=== PATIENT | female | born 1935 | race Caucasian/White ===

== ENCOUNTER → 2017-02-10 | Day surgery (SDC) | payer BC ==
[2017-01-23 08:24] VITALS: Ht 157.5 cm; Wt 59.1 kg
[~2017-02-10] VITALS: Ht 157.5 cm; Wt 59.1 kg
[~2017-02-10] MED LIST: 500ML BSS 0.3ML EPI 1:1000PF IRRIG ONE; ACETAMINOPHEN 325 MG TAB PO PRN; AMVISC PLUS 0.8ML SYRINGE INT OCU ONE; ATROPINE SULFATE 0.1 MG/ML 5ML SYR IV PRN; BROM0.07 OPL; BSS FLUSH ONE; CALC500C70 PO; CHOL20009 PO; EpHEDrine SULFATE INJ 50 MG/ML AMP IV PRN; EpINEphrine INJ 1MG/ML AMP 1 MG/ML AMP ONE; FENTANYL CITRATE INJ 50 MCG/1 ML 2 ML VIAL IV PRN; FLUMAZENIL 0.1 MG/1 ML 10 ML VIAL IV PRN; HYDROmorphone INJ 2 MG/ML SYR/VIAL IV PRN; LABETALOL HCL IV 5 MG/ML 20ML IV PRN; LACTATED RINGER'S 1000ML 500 ML IV SCH; LEVO100T7 PO; LIDOCAINE 3.5% OPH GEL PER APPLICATION CHARGE ONE; LIDOCAINE HCL 1% MPF 2 ML VIAL ONE; MEPERIDINE HCL 25 MG/ML CARP IV PRN; MIDAZOLAM HCL 1 MG/ML 2ML VIAL ONE; NALOXONE HCL 0.4 MG/1 ML VIAL/CARP IV PRN; OCUCOAT 1 ML SOLN IO ONE; ONDANSETRON INJ 2 MG/ML 2 ML VIAL IV PRN; PHENYLEPHRINE 100MCG/ML 5ML SYR IV PRN; PHENYLEPHRINE HCL 10% OP SOLN PER DROP CHARGE OPL SCH; POVIDONE-IODINE OP SOLN 30 ML BTL ONE; PRAV10TA39 PO; PRED1SUS OPL; PROPARACAINE 0.5% OP SOLN PER DROP CHARGE OPL SCH; TOBRAMYCIN/DEXAMETHASONE OPH OINT PER APPLN CHARGE ONE
[2017-02-10] MEDS: PHENYLEPHRINE HCL 2.5% OP SOLN PER DROP CHARGE OPL SCH ×2 (08:21→08:26)
[2017-02-10] MEDS: TROPICAMIDE 1% OP SOLN PER DROP CHARGE OPL SCH ×2 (08:22→08:27)
[2017-02-10] MEDS: CYCLOPENTOLATE HCL 1% OP SOLN PER DROP CHARGE OPL SCH ×2 (08:23→08:28)
[2017-02-10] MEDS: KETOROLAC 0.5% OP SOLN PER DROP CHARGE OPL SCH ×2 (08:24→08:29)
[2017-02-10] MEDS: GATIFLOXACIN OP SOLN PER DROP CHARGE OPL SCH ×2 (08:25→08:35)
--- NOTE | 2017-02-10 08:51 | History & Physical Bridge - [place] ---
H&P Re-Evaluation Bridge Note: I have examined the patient, reviewed the History & Physical and in the interval since the performance of the History & Physical I have noted the following changes of clinical significance: Diagnosis: Left Cataract Procedure: Left Cataract Removal with Lens Implant No changes noted
--- NOTE | 2017-02-10 09:40 | Discharge Instructions-SurgCtr ---
Discharge Instructions Date of Service Feb 10, 2017. Visit Reason for Visit: Cataract Left Eye Discharge Discharge Diagnosis / Problem: cataract Discharge Goals Goal(s): Improve function Activity Recommendations Activity Limitations: per Instructions/Follow-up section Anesthesia . Post Anesthesia Instructions: If you have had General Anesthesia or IV Sedation: * Do not drive today. * Resume driving when surgeon permits. * Do not make important decisions or sign legal documents today. * Call surgeon for: 1. Temperature elevations greater than 101 degrees F. 2. Uncontrollable pain. 3. Excessive bleeding. 4. Persistent nausea and vomiting. 5. Medication intolerance (nausea, vomiting or rash). * For nausea and vomiting use only clear liquids such as: tea, soda, bouillon until nausea subsides, then gradually increase diet as tolerated. * If you have any concerns or questions, call your surgeon's office. If physician is unavailable and it is an emergency, call 911 or go to the nearest emergency room. . Instructions / Follow-Up Instructions / Follow-Up ACTIVITY RECOMMENDATIONS: * No strenuous lifting, jogging or running for 4 days * No swimming or yard work for 1 week. * Limited bending is permitted, such as putting on shoes. RETURN TO SCHOOL/WORK: No work until seen by physician in office. MEDICATIONS: Resume previous medications unless instructed otherwise by your surgeon. This includes eye drops for glaucoma. Zymaxid/Gatifloxacin (solis cap) - one drop every 2 hours until bedtime Nevanac/Ilevro/Prolensa/Ketorolac (jewell cap) - one drop every 4 hours until bedtime Prednisolone (white/pink cap, SHAKE WELL) - one drop every 2 hours until bedtime Starting tomorrow - all 3 drops every 4 hours until seen in the office Optive drops - as needed for discomfort SPECIAL CARE INSTRUCTIONS: * Wear eyeshield when sleeping, for four nights. * You may wear your own glasses or sunglasses while awake. * You may read or watch TV * You may shower and wash your face, but be gentle around the eye and pat dry. * Blurry vision and mild irritation are normal. * Call office if pain is more severe or vision becomes dark at . FOLLOW UP VISIT: Follow-up with Dr Branch tomorrow. Diet Recommendations Home Diet: resume previous diet Procedures Procedures Performed: Left Cataract Phacoemulsification With Intraocular Lens Implant Pending Studies Studies pending at discharge: no Medical Emergencies . Who to Call and When: Medical Emergencies: If at any time you feel your situation is an emergency, please call 911 immediately. . Non-Emergent Contact Non-Emergency issues call your: [employer]pler . . "Provider Documentation" section prepared by Oliver Branch.
[2017-02-10 09:42] VITALS: TEMP 36.6
--- NOTE | 2017-02-10 09:43 | [facility] Operative Report ---
Operative Report Date of Service Feb 10, 2017. Operative Report 1. PREOPERATIVE DIAGNOSIS: Cataract of the left eye with a small pupil 2. POSTOPERATIVE DIAGNOSIS: Same. 3. PROCEDURE: Phacoemulsification with intraocular lens implantation of the left eye with pupil stretching SURGEON: Dr. Oliver Branch. ANESTHESIA: Topical Lidocaine gel, 1% Non- Preserved intracameral Lidocaine, and monitored intravenous sedation. INDICATIONS FOR THE PROCEDURE: The patient is a 81 - year-old female with a history of cataract of the left eye causing significant visual impairment. The details of the proposed procedure were explained to the patient who asked appropriate questions and following discussion of all risks, benefits and alternatives agreed to have the procedure done. The patient was noted to have a poorly dilating pupil preoperatively and therefore plans were made to use pupil stretching. 4. OPERATION AND FINDINGS: DESCRIPTION OF PROCEDURE: After informed consent was obtained, the patient was brought to the Operating Room at the [facility]. The patient was placed in a supine position and then the left eye was prepped and draped in the usual sterile fashion for intraocular surgery. A drop of topical Lidocaine gel was placed in the operative eye. A wire lid speculum was then placed in the fornices. A corneal paracentesis was then created temporally. The Non-Preserved Lidocaine was then instilled into the anterior chamber. The anterior chamber was then pressurized with viscoelastic. A 2.0 mm clear corneal incision was then created temporally. Kuglen hooks were used to stretch the pupil in both a vertical and horizontal direction. A cystotome was inserted into the anterior chamber and used to create a tear in the anterior lens capsule. This capsular tear was then used to create a small flap and the flap was dragged in a counterclockwise direction in order to create a continuous curvilinear capsulorrhexis. Hydrodissection was accomplished with balanced salt solution. Phacoemulsification of the lens nucleus was then performed in a standard [id number] technique. The phaco time was 18 seconds with an average power of 12 %. The remaining cortical material was removed using irrigation aspiration. The capsular bag was then filled with viscoelastic. A Bausch & Lomb MI60L +22.0 diopters lens was then loaded into the injector and injected into the capsular bag. The remaining viscoelastic was removed with the irrigation aspiration handpiece. The wound was hydrated and then checked and found to be watertight. The intraocular pressure was checked and found to be adequate. The wire lid speculum was removed and the patient's face was cleaned and dried. TobraDex ointment was placed in the inferior fornix. The patient was discharged to the Recovery Room having tolerated the procedure well. There were no complications. The patient will be seen tomorrow in the office for follow-up. I attest to the content of the Intraoperative Record and any orders documented therein. Any exceptions are noted below.
[2017-02-10 10:00] VITALS: BP 170/92; PULSE 76; O2SAT 96
--- NOTE | 2017-02-10 10:08 | Anesthesia Progress Nt - [facility] ---
Anesthesia Post Op Note Date & Time Feb 10, 2017 at 10:09 Vital Signs Pain Intensity: 0 Vital Signs Past 12 Hours Date Time Temp Pulse Resp B/P Pulse Ox O2 Delivery O2 Flow Rate FiO2 02/10/17 10:00 76 16 170/92 96 Room Air 02/10/17 09:42 36.6 63 12 160/98 97 Room Air 02/10/17 08:16 36.5 71 16 142/86 94 Room Air Notes Mental Status: alert / awake / arousable, participated in evaluation Pt Amnestic to Procedure: Yes Nausea / Vomiting: adequately controlled Pain: adequately controlled Airway Patency, RR, SpO2: stable & adequate BP & HR: stable & adequate Hydration State: stable & adequate Anesthetic Complications: no major complications apparent
== END | disposition home or self-care (01) ==
LOC: X.SURG 07:55
PROVIDERS: ATTEND Ophthalmology
DX: H26.9 Unspecified cataract (principal)

== ENCOUNTER → 2017-03-03 | Day surgery (SDC) | payer BC ==
[2017-02-20 10:34] VITALS: Ht 157.5 cm; Wt 59.1 kg
[~2017-03-03] VITALS: Ht 157.5 cm; Wt 59.1 kg
[~2017-03-03] MED LIST changes: -FENTANYL CITRATE INJ 50 MCG/1 ML 2 ML VIAL IV PRN; -FLUMAZENIL 0.1 MG/1 ML 10 ML VIAL IV PRN; -HYDROmorphone INJ 2 MG/ML SYR/VIAL IV PRN; -LABETALOL HCL IV 5 MG/ML 20ML IV PRN; -MEPERIDINE HCL 25 MG/ML CARP IV PRN; -NALOXONE HCL 0.4 MG/1 ML VIAL/CARP IV PRN; -ONDANSETRON INJ 2 MG/ML 2 ML VIAL IV PRN; -PHENYLEPHRINE 100MCG/ML 5ML SYR IV PRN; -PHENYLEPHRINE HCL 10% OP SOLN PER DROP CHARGE OPL SCH; +PHENYLEPHRINE HCL 10% OP SOLN PER DROP CHARGE OPR SCH; -PROPARACAINE 0.5% OP SOLN PER DROP CHARGE OPL SCH; +PROPARACAINE 0.5% OP SOLN PER DROP CHARGE OPR SCH
[2017-03-03] MEDS: PHENYLEPHRINE HCL 2.5% OP SOLN PER DROP CHARGE OPR SCH ×2 (09:58→10:03)
[2017-03-03] MEDS: TROPICAMIDE 1% OP SOLN PER DROP CHARGE OPR SCH ×2 (09:59→10:04)
[2017-03-03] MEDS: CYCLOPENTOLATE HCL 1% OP SOLN PER DROP CHARGE OPR SCH ×2 (10:00→10:05)
[2017-03-03] MEDS: KETOROLAC 0.5% OP SOLN PER DROP CHARGE OPR SCH ×2 (10:01→10:06)
[2017-03-03] MEDS: GATIFLOXACIN OP SOLN PER DROP CHARGE OPR SCH ×2 (10:02→10:09)
--- NOTE | 2017-03-03 10:47 | History & Physical Bridge - [place] ---
H&P Re-Evaluation Bridge Note: I have examined the patient, reviewed the History & Physical and in the interval since the performance of the History & Physical I have noted the following changes of clinical significance: No changes noted
--- NOTE | 2017-03-03 11:31 | Discharge Instructions-SurgCtr ---
Discharge Instructions Date of Service Mar 03, 2017. Visit Reason for Visit: Cataract Right Eye Discharge Discharge Diagnosis / Problem: cataract Discharge Goals Goal(s): Improve function Activity Recommendations Activity Limitations: per Instructions/Follow-up section Anesthesia . Post Anesthesia Instructions: If you have had General Anesthesia or IV Sedation: * Do not drive today. * Resume driving when surgeon permits. * Do not make important decisions or sign legal documents today. * Call surgeon for: 1. Temperature elevations greater than 101 degrees F. 2. Uncontrollable pain. 3. Excessive bleeding. 4. Persistent nausea and vomiting. 5. Medication intolerance (nausea, vomiting or rash). * For nausea and vomiting use only clear liquids such as: tea, soda, bouillon until nausea subsides, then gradually increase diet as tolerated. * If you have any concerns or questions, call your surgeon's office. If physician is unavailable and it is an emergency, call 911 or go to the nearest emergency room. . Instructions / Follow-Up Instructions / Follow-Up ACTIVITY RECOMMENDATIONS: * No strenuous lifting, jogging or running for 4 days * No swimming or yard work for 1 week. * Limited bending is permitted, such as putting on shoes. RETURN TO SCHOOL/WORK: No work until seen by physician in office. MEDICATIONS: Resume previous medications unless instructed otherwise by your surgeon. This includes eye drops for glaucoma. Zymaxid/Gatifloxacin (solis cap) - one drop every 2 hours until bedtime Nevanac/Ilevro/Prolensa/Ketorolac (jewell cap) - one drop every 4 hours until bedtime Prednisolone (white/pink cap, SHAKE WELL) - one drop every 2 hours until bedtime Starting tomorrow - all 3 drops every 4 hours until seen in the office Optive drops - as needed for discomfort SPECIAL CARE INSTRUCTIONS: * Wear eyeshield when sleeping, for four nights. * You may wear your own glasses or sunglasses while awake. * You may read or watch TV * You may shower and wash your face, but be gentle around the eye and pat dry. * Blurry vision and mild irritation are normal. * Call office if pain is more severe or vision becomes dark at . FOLLOW UP VISIT: Follow-up with Dr Branch tomorrow. Diet Recommendations Home Diet: resume previous diet Procedures Procedures Performed: Right Cataract Phacoemulsification With Intraocular Lens Implant Pending Studies Studies pending at discharge: no Medical Emergencies . Who to Call and When: Medical Emergencies: If at any time you feel your situation is an emergency, please call 911 immediately. . Non-Emergent Contact Non-Emergency issues call your: Ocean [employer]ishing Guide . . "Provider Documentation" section prepared by Oliver Branch.
--- NOTE | 2017-03-03 11:33 | [facility] Operative Report ---
Operative Report Date of Service Mar 03, 2017. Operative Report 1. PREOPERATIVE DIAGNOSIS: Cataract of the right eye with small pupil. 2. POSTOPERATIVE DIAGNOSIS: Same. 3. PROCEDURE: Phacoemulsification with intraocular lens implantation of the right eye. SURGEON: Dr. Oliver Branch. ANESTHESIA: Topical Lidocaine gel, 1% Non- Preserved intracameral Lidocaine, and monitored intravenous sedation. INDICATIONS FOR THE PROCEDURE: The patient is a 81 - year-old female with a history of cataract of the right eye causing significant visual impairment. The details of the proposed procedure were explained to the patient who asked appropriate questions and following discussion of all risks, benefits and alternatives agreed to have the procedure done. The patient was noted preoperatively to have a poorly dilating pupil and therefore plans were made for pupil stretching. 4. OPERATION AND FINDINGS: DESCRIPTION OF PROCEDURE: After informed consent was obtained, the patient was brought to the Operating Room at the [facility]. The patient was placed in a supine position and then the right eye was prepped and draped in the usual sterile fashion for intraocular surgery. A drop of topical Lidocaine gel was placed in the operative eye. A wire lid speculum was then placed in the fornices. A corneal paracentesis was then created temporally. The Non-Preserved Lidocaine was then instilled into the anterior chamber. The anterior chamber was then pressurized with viscoelastic. A 2.0 mm clear corneal incision was then created temporally. Kuglen hooks were used to stretch the pupil in both a horizontal and vertical direction to create adequate visualization of the anterior lens capsule. A cystotome was inserted into the anterior chamber and used to create a tear in the anterior lens capsule. This capsular tear was then used to create a small flap and the flap was dragged in a counterclockwise direction in order to create a continuous curvilinear capsulorrhexis. Hydrodissection was accomplished with balanced salt solution. Phacoemulsification of the lens nucleus was then performed in a standard [id number] technique. The phaco time was 23 seconds with an average power of 14 %. The remaining cortical material was removed using irrigation aspiration. The capsular bag was then filled with viscoelastic. A Bausch & Lomb MI60L +21.0 diopters lens was then loaded into the injector and injected into the capsular bag. The remaining viscoelastic was removed with the irrigation aspiration handpiece. The wound was hydrated and then checked and found to be watertight. The intraocular pressure was checked and found to be adequate. The wire lid speculum was removed and the patient's face was cleaned and dried. TobraDex ointment was placed in the inferior fornix. The patient was discharged to the Recovery Room having tolerated the procedure well. There were no complications. The patient will be seen tomorrow in the office for follow-up. I attest to the content of the Intraoperative Record and any orders documented therein. Any exceptions are noted below.
[2017-03-03 11:37] VITALS: TEMP 36.4
[2017-03-03 11:51] VITALS: BP 165/87; PULSE 64; O2SAT 97
--- NOTE | 2017-03-03 11:56 | Anesthesia Progress Nt - [facility] ---
Anesthesia Post Op Note Date & Time Mar 03, 2017 at 11:56 Vital Signs Pain Intensity: 0 Vital Signs Past 12 Hours Date Time Temp Pulse Resp B/P Pulse Ox O2 Delivery O2 Flow Rate FiO2 03/03/17 11:51 64 16 165/87 97 Room Air 03/03/17 11:37 36.4 58 16 162/87 99 Room Air 03/03/17 09:55 36.4 64 16 187/93 95 Room Air Notes Mental Status: alert / awake / arousable, participated in evaluation Pt Amnestic to Procedure: Yes Nausea / Vomiting: adequately controlled Pain: adequately controlled Airway Patency, RR, SpO2: stable & adequate BP & HR: stable & adequate Hydration State: stable & adequate Anesthetic Complications: no major complications apparent
== END | disposition home or self-care (01) ==
LOC: X.SURG 09:24
PROVIDERS: ATTEND Ophthalmology
DX: H26.9 Unspecified cataract (principal)

== ENCOUNTER → 2018-02-16 | Outpatient (CLI) | payer OTHER, BC ==
[~2018-02-16] MED LIST changes: -500ML BSS 0.3ML EPI 1:1000PF IRRIG ONE; -ACETAMINOPHEN 325 MG TAB PO PRN; -AMVISC PLUS 0.8ML SYRINGE INT OCU ONE; -ATROPINE SULFATE 0.1 MG/ML 5ML SYR IV PRN; -BSS FLUSH ONE; -EpHEDrine SULFATE INJ 50 MG/ML AMP IV PRN; -EpINEphrine INJ 1MG/ML AMP 1 MG/ML AMP ONE; -LACTATED RINGER'S 1000ML 500 ML IV SCH; -LIDOCAINE 3.5% OPH GEL PER APPLICATION CHARGE ONE; -LIDOCAINE HCL 1% MPF 2 ML VIAL ONE; -MIDAZOLAM HCL 1 MG/ML 2ML VIAL ONE; -OCUCOAT 1 ML SOLN IO ONE; -PHENYLEPHRINE HCL 10% OP SOLN PER DROP CHARGE OPR SCH; -POVIDONE-IODINE OP SOLN 30 ML BTL ONE; -PROPARACAINE 0.5% OP SOLN PER DROP CHARGE OPR SCH; -TOBRAMYCIN/DEXAMETHASONE OPH OINT PER APPLN CHARGE ONE
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
== END | disposition home or self-care (01) ==
LOC: C.RAD1850 11:47
PROVIDERS: ATTEND Physician Assistant
DX: R07.81 Pleurodynia (principal); K59.00 Constipation, unspecified

== ENCOUNTER → 2018-03-24 | Outpatient (CLI) | payer BC ==
[2018-03-24 10:06] LABS: ALBUMIN 3.5 gm/dl (3.4-5.0); ALT/SGPT 25 U/L (12-78); AST/SGOT 20 U/L (15-37); BLOOD UREA NITROGEN 26 mg/dl (7-18); CALCIUM 9.4 mg/dl (8.5-10.1); CARBON DIOXIDE 29 mmol/L (21-32); CHOLESTEROL 221 mg/dl (0-200); CREATININE 0.72 mg/dl (0.60-1.20); GLUCOSE 79 mg/dl (70-99); POTASSIUM 4.3 mmol/L (3.5-5.1); SODIUM 141 mmol/L (136-145)
[2018-03-24 10:16] LABS: ALKALINE PHOSPHATASE 81 U/L (45-117); LDL CHOLESTEROL CALCULATED 135 mg/dl; TOTAL PROTEIN 7.2 gm/dl (6.4-8.2)
== END | disposition home or self-care (01) ==
LOC: C.LAB1850 08:32
PROVIDERS: ATTEND Internal Medicine
DX: I10 Essential (primary) hypertension (principal); E03.9 Hypothyroidism, unspecified; E78.5 Hyperlipidemia, unspecified; E55.9 Vitamin D deficiency, unspecified

== ENCOUNTER 2023-06-29 13:06 | Inpatient (IN) ==
[2023-06-29 14:38] LABS: Alanine Aminotransferase 15 U/L (7-52); Albumin Level 3.7 gm/dl (3.4-5.0); Alkaline Phosphatase 75 U/L (34-104); Anion Gap 9 (3-11); Aspartate Aminotransferase 26 U/L (13-39); BUN Creatinine Ratio 31.9 (10-20); Basophils # (auto) 0.03 K/uL (0-0.2); Basophils % (auto) 0.2 %; Bilirubin,Total 1.4 mg/dl (0.2-1.0); Blood Urea Nitrogen 23 mg/dl (6-23); Calcium 9.8 mg/dl (8.6-10.3); Carbon Dioxide 28 mmol/L (21-32); Chloride 94 mmol/L (98-107); Eosinophils # (auto) 0.02 K/uL (0-0.50); Eosinophils % (auto) 0.1 %; Est GFR (African American) 86.1 ml/min; Est GFR (Non-African American) 74.3 ml/min; Globulin 3.8 gm/dl (2.5-4.0); Glucose 164 mg/dl (70-99(Fasting)); Hematocrit (blood only) 42.3 % (37.0-47.0); Hemoglobin 14.1 g/dl (12.0-16.0); Immature Granulocytes # (auto) 0.04 K/uL (0.01-0.20); Immature Granulocytes % (auto) 0.3 %; Lymphocytes # (auto) 1.24 K/uL (1.2-3.4); Lymphocytes % (auto) 8.9 %; Mean Corpuscular Hemoglobin 29.6 pg (25.0-34.0); Mean Corpuscular Hgb Conc 33.3 g/dL (32.0-36.0); Mean Corpuscular Volume 88.7 fL (80.0-100.0); Mean Platelet Volume 10.6 fL (9.4-12.4); Monocytes # (auto) 1.18 K/uL (0.11-0.59); Monocytes % (auto) 8.5 %; Neutrophils # (auto) 11.42 K/uL (1.40-6.50); Platelet Count 486 K/uL (130-400); Potassium 3.8 mmol/L (3.5-5.1); RDW Coefficient of Variation 13.7 % (11.5-14.5); RDW Standard Deviation 44.5 fL (36.4-46.3); Red Blood Count 4.77 M/uL (4.20-5.40); Sodium 131 mmol/L (136-145); Total Protein 7.5 gm/dl (6.0-8.3); White Blood Count 13.93 K/ul (4.8-10.8)
[2023-06-29] MEDS ORDERED: CEFEPIME 2,000 MG/20 ML VIAL IV STA (16:24)
[2023-06-29] MEDS ORDERED: ONDANSETRON INJ 2 MG/ML 2 ML VIAL IV STA (16:24)
[2023-06-29] MEDS ORDERED: SODIUM CHLORIDE 0.9% 1000ML 1,000 ML IV ONE (16:24)
--- NOTE | 2023-06-29 16:30 | Emergency Department Note ---
Impression & Plan Weakness, Leukocytosis, Acute hyponatremia, Ambulatory dysfunction ED Provider Note NAME: ROXY DANIELSON AGE: 88 SEX: F : 1935 ARRIVES VIA: Walk-In INFORMANT: [Patient][family] ED PROVIDER(S): [Ashu Goldstein MD] CHIEF COMPLAINT: Weakness HISTORY OF PRESENT ILLNESS: The patient is an 88-year-old female who as per the son has had some increasing difficulty getting around and performing her daily activities for the last few months. In the last few days, she has worsened to the point where she can no longer even stand on her own. The patient went to her doctor's office today and was felt to be dehydrated. She was referred to the ER. The patient admits to some chills at the doctor's office. She denies fever or cough or shortness of breath. No chest or abdominal pain. The patient states that she did vomit once, she thinks yesterday. As per the son, he feels the patient is dehydrated. He is also concerned for the possibility of UTI as she has been urinating quite frequently. PMHx/PSHx: See Below SOCIAL HISTORY: See Below. PHYSICAL EXAM: GENERAL: Patient is in no acute distress. HEENT: No acute trauma, normocephalic atraumatic, mucous membranes moist, no nasal congestion. NECK: No stridor, no adenopathy, no meningismus, trachea is midline. LUNGS: A few crackles heard at the left lung anteriorly. Posterior lung sounds are clear without wheezing or crackles. No respiratory distress HEART: Mildly tachycardic and irregular, no obvious murmur. ABDOMEN: Soft, nontender, bowel sounds positive, no peritonitis. EXTREMITIES: No cyanosis. Bilateral pedal edema, worse on the left which is her baseline history. NEUROLOGIC: Awake and alert, no speech slur. Poor historian. Moves all extremities. SKIN: No rash, no jaundice, no diaphoresis. DIFFERENTIAL DIAGNOSIS: Dehydration, renal or liver failure, electrolyte imbalance, diverticulitis or colitis, pneumonia, UTI, bacteremia or sepsis, stroke, among others. EMERGENCY DEPARTMENT COURSE/PROCEDURES: Prior/Outside records reviewed: Recent outpatient family practice note. ECG per my interpretation: Indication was weakness. The ECG shows a sinus tachycardia with PACs. LVH is present. The rate is 105. There is significant baseline artifact. There is no ST elevation, no PVCs. The QTc is 415. Continuous Cardiac Monitoring per my interpretation: An order was placed for continuous cardiac monitoring. The monitor shows a rate of 98 with normal sinus rhythm. MEDICAL DECISION MAKING: There is a slight leukocytosis, this could be consistent with infection or just the stress of her current presentation. There is a normal hemoglobin. Platelet count is slightly elevated. Sodium was low at 131, no renal failure. Lactic acid level was not elevated making sepsis less likely. Bilirubin was slightly high at 1.4, no other elevated LFTs noted. ECG showed a sinus tachycardia, no obvious acute ischemia. Cardiac enzyme testing was slightly elevated. This subtle troponin elevation could be secondary to cardiac injury or potentially just mismatch. Procalcitonin level was not elevated making serious bacterial infection less likely. TSH was slightly high however, the T4 was normal. Urinalysis did not show findings of infection. Chest x-ray per my review did not show mediastinal widening, pneumonia or pneumothorax. Abdominal and pelvis CT showed a distended gallbladder, no urinary or bowel obstruction, no acute surgical process by CT imaging. Head CT showed no acute bleed or mass effect. Gallbladder ultrasound did not show any evidence for acute cholecystitis. On exam, the patient appeared weak and dehydrated. The patient received IV saline for hydration, 1 L. She was given IV Toradol pain--she complained of hip pain during her stay, she received IV Zofran for nausea. She was given IV cefepime as empiric antibiotic coverage. The cause for her complaints is not completely clear but likely multifactorial- she certainly does seem dehydrated and debilitated. Her sodium is low. She does require a hospital stay, further testing, observation and hydration. I did speak with the patient and case management, I spoke with her son, the on-call hospitalist was consulted. DISPOSITION: Patient's findings and presentation warrant a hospital stay. Past Med/Surg History Medical History Dyslipidemia Hypercholesterolemia Osteoarthritis Sciatica Uterine leiomyoma Surgical History Hx of shoulder replacement S/P hip replacement S/P tonsillectomy and adenoidectomy Status post total shoulder arthroplasty Family History Father COPD (chronic obstructive pulmonary disease) Mother Hypertension Daughter Breast cancer Grandmother (Maternal) Colon cancer Denies family history of Ovarian cancer Prostate cancer Myocardial infarction Social History Smoking Status: Never smoker Second Hand Exposure: No; Do You Dip or Chew Tobacco: No; Hx Alcohol Use: No Hx Substance Use: No Preferred Language: Portuguese Communication Ability: Effective Visual Impairment: No Limitations Hearing Ability: Normal Prestidigitator Required: No Beliefs That Will Affect Care: None marital status: Current Living Situation: Alone Current Living Situation Comment: Pt's son comes and helps with pt's care current occupational status: retired Other Information That Helps Us Care for You: No Feels Safe at Home: Yes Safety Concerns: Feels Safe At This Time Dental Care, Regularly: Yes Physical Activity Frequency: Other Physical Activity Frequency Comment: 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 Seatbelt Use: always Sunscreen Use: No Assistive Devices: Glasses and Walker Allergies Allergies Allergy/AdvReac Type Severity Reaction Status Date / Time morphine AdvReac Intermediate nausea Verified 06/29/23 16:28 vomiting Home Meds Home Medications Medication Instructions Recorded Confirmed cholecalciferol (vitamin D3) 50 50 mcg PO DAILY 09/28/19 06/29/23 mcg (2,000 unit) capsule antiarthritic combination no.2 900 900 mg PO DAILY 07/08/22 06/29/23 mg tablet (glucosamine-chondroitin) calcium carbonate 600 mg-vitamin 1 tab PO DAILY 06/29/23 06/29/23 D3 10 mcg (400 unit) tablet (Calcium 600 + D(3)) levothyroxine 100 mcg tablet 100 mcg PO DAILYBB 06/29/23 06/29/23 (Synthroid) Previous Rx's Medication Instructions Recorded pravastatin 20 mg tablet 20 mg PO HS #90 tabs 10/23/22 Results & Data (ED) Vital Signs Vital Signs - 24 hr 06/29/23 13:10 06/29/23 16:27 06/29/23 16:12 Temperature 37.2 C Temperature Source Temporal Artery Scan Pulse Rate 59 L 92 H 96 H Pulse Rate from SpO2 Sensor Pulse Rhythm Regular Pulse Strength Normal Respiratory Rate 20 18 Respiratory Effort / Characteristics Non-Labored Spontaneous Respiratory Depth Normal Respiratory Pattern Regular Blood Pressure 134/75 Blood Pressure Mean 94 Blood Pressure Position Sitting Pulse Oximetry 99 Oxygen Delivery Method Room Air Sepsis Recent Fever Within 48 Hours No Sepsis New/Unexplained Change in Mental Status No Sepsis Action Taken by Nursing No Action Required 06/29/23 16:20 06/29/23 16:30 06/29/23 16:30 Temperature Temperature Source Pulse Rate 97 H 90 Pulse Rate from SpO2 Sensor 95 H 83 Pulse Rhythm Pulse Strength Respiratory Rate 18 20 Respiratory Effort / Characteristics Respiratory Depth Respiratory Pattern Blood Pressure 142/86 H Blood Pressure Mean 104 Blood Pressure Position Pulse Oximetry 90 97 Oxygen Delivery Method Sepsis Recent Fever Within 48 Hours Sepsis New/Unexplained Change in Mental Status Sepsis Action Taken by Nursing 06/29/23 16:40 06/29/23 17:56 06/29/23 17:58 Temperature Temperature Source Pulse Rate 92 H 95 H Pulse Rate from SpO2 Sensor 85 Pulse Rhythm Pulse Strength Respiratory Rate 14 33 H Respiratory Effort / Characteristics Respiratory Depth Respiratory Pattern Blood Pressure 158/112 H Blood Pressure Mean 127 Blood Pressure Position Pulse Oximetry 96 Oxygen Delivery Method Sepsis Recent Fever Within 48 Hours Sepsis New/Unexplained Change in Mental Status Sepsis Action Taken by Nursing 06/29/23 17:58 06/29/23 18:00 06/29/23 18:00 Temperature Temperature Source Pulse Rate 86 88 Pulse Rate from SpO2 Sensor 87 85 Pulse Rhythm Pulse Strength Respiratory Rate 20 22 Respiratory Effort / Characteristics Respiratory Depth Respiratory Pattern Blood Pressure 155/76 H Blood Pressure Mean 102 Blood Pressure Position Pulse Oximetry 92 95 Oxygen Delivery Method Sepsis Recent Fever Within 48 Hours Sepsis New/Unexplained Change in Mental Status Sepsis Action Taken by Nursing 06/29/23 18:10 06/29/23 18:20 06/29/23 18:30 Temperature Temperature Source Pulse Rate 91 H 89 Pulse Rate from SpO2 Sensor 92 H 91 H Pulse Rhythm Pulse Strength Respiratory Rate 22 15 Respiratory Effort / Characteristics Respiratory Depth Respiratory Pattern Blood Pressure 141/75 H Blood Pressure Mean 97 Blood Pressure Position Pulse Oximetry 92 95 Oxygen Delivery Method Sepsis Recent Fever Within 48 Hours Sepsis New/Unexplained Change in Mental Status Sepsis Action Taken by Nursing 06/29/23 18:30 Temperature Temperature Source Pulse Rate 88 Pulse Rate from SpO2 Sensor 87 Pulse Rhythm Pulse Strength Respiratory Rate 18 Respiratory Effort / Characteristics Respiratory Depth Respiratory Pattern Blood Pressure Blood Pressure Mean Blood Pressure Position Pulse Oximetry 96 Oxygen Delivery Method Sepsis Recent Fever Within 48 Hours Sepsis New/Unexplained Change in Mental Status Sepsis Action Taken by Snf Medications Current Medication List: was personally reviewed by me Laboratory Data Attestation: I reviewed the patient's lab results. 06/29/23 13:54 06/29/23 13:54 Lab Results 06/29/23 06/29/23 06/29/23 Range/Units 13:54 13:54 13:54 WBC 13.93 H (4.8-10.8) K/ul RBC 4.77 (4.20-5.40) M/uL Hgb 14.1 (12.0-16.0) g/dl Hct 42.3 (37.0-47.0) % MCV 88.7 (80.0-100.0) fL MCH 29.6 (25.0-34.0) pg MCHC 33.3 (32.0-36.0) g/dL RDW Std Deviation 44.5 (36.4-46.3) fL RDW Coeff of [place] 13.7 (11.5-14.5) % Plt Count 486 H (130-400) K/uL MPV 10.6 (9.4-12.4) fL Immature Gran % (Auto) 0.3 % Neut % (Auto) 82.0 % Lymph % (Auto) 8.9 % [place] % (Auto) 8.5 % Eos % (Auto) 0.1 % Baso % (Auto) 0.2 % Neut # (Auto) 11.42 H (1.40-6.50) K/uL Lymph # (Auto) 1.24 (1.2-3.4) K/uL [place] # (Auto) 1.18 H (0.11-0.59) K/uL Eos # (Auto) 0.02 (0-0.50) K/uL Baso # (Auto) 0.03 (0-0.2) K/uL Immature Gran # (Auto) 0.04 (0.01-0.20) K/uL Sodium 131 L (136-145) mmol/L Potassium 3.8 (3.5-5.1) mmol/L Chloride 94 L (98-107) mmol/L Carbon Dioxide 28 (21-32) mmol/L Anion Gap 9 (3-11) BUN 23 (6-23) mg/dl Creatinine 0.72 (0.6-1.2) mg/dl Est Cr Clr Drug Dosing Not Reportable Est GFR ( Amer) 86.1 ml/min Est GFR (Non-Af Amer) 74.3 ml/min BUN/Creatinine Ratio 31.9 H (10-20) Glucose 164 H (70-99(Fasting)) mg/dl Lactate (0.4-2.0) mmol/L Calcium 9.8 (8.6-10.3) mg/dl Magnesium 1.9 (1.7-2.4) mg/dl Total Bilirubin 1.4 H (0.2-1.0) mg/dl AST 26 (13-39) U/L ALT 15 (7-52) U/L Alkaline Phosphatase 75 (34-104) U/L Troponin I High Sens 19.8 H (0-14) pg/ml Total Protein 7.5 (6.0-8.3) gm/dl Albumin 3.7 (3.4-5.0) gm/dl Globulin 3.8 (2.5-4.0) gm/dl Albumin/Globulin Ratio 1.0 (0.9-2) Procalcitonin (0-0.5) ng/ml TSH 4.650 H (0.300-4.500) uIu/ml Free T4 1.09 (0.61-1.60) ng/dl Urine Color Urine Appearance (Clear) Urine pH (4.5-7.5) Ur Specific Iron (1.000-1.030) Urine Protein (Negative) Urine Glucose (UA) (Negative) Urine Ketones (Negative) Urine Blood (Negative) Urine Nitrite (Negative) Urine Bilirubin (Negative) Urine Urobilinogen (Negative) Ur Leukocyte Esterase (Negative) Urine WBC (Auto) (0-5) /hpf Urine RBC (Auto) (0-4) /hpf U Hyaline Cast (Auto) (0-5) /lpf U Epithel Cells (Auto) (0-5) /lpf Urine Bacteria (Auto) (Negative) 06/29/23 06/29/23 06/29/23 Range/Units 13:54 16:40 17:53 WBC (4.8-10.8) K/ul RBC (4.20-5.40) M/uL Hgb (12.0-16.0) g/dl Hct (37.0-47.0) % MCV (80.0-100.0) fL MCH (25.0-34.0) pg MCHC (32.0-36.0) g/dL RDW Std Deviation (36.4-46.3) fL RDW Coeff of [place] (11.5-14.5) % Plt Count (130-400) K/uL MPV (9.4-12.4) fL Immature Gran % (Auto) % Neut % (Auto) % Lymph % (Auto) % [place] % (Auto) % Eos % (Auto) % Baso % (Auto) % Neut # (Auto) (1.40-6.50) K/uL Lymph # (Auto) (1.2-3.4) K/uL [place] # (Auto) (0.11-0.59) K/uL Eos # (Auto) (0-0.50) K/uL Baso # (Auto) (0-0.2) K/uL Immature Gran # (Auto) (0.01-0.20) K/uL Sodium (136-145) mmol/L Potassium (3.5-5.1) mmol/L Chloride (98-107) mmol/L Carbon Dioxide (21-32) mmol/L Anion Gap (3-11) BUN (6-23) mg/dl Creatinine (0.6-1.2) mg/dl Est Cr Clr Drug Dosing Est GFR ( Amer) ml/min Est GFR (Non-Af Amer) ml/min BUN/Creatinine Ratio (10-20) Glucose (70-99(Fasting)) mg/dl Lactate 1.9 (0.4-2.0) mmol/L Calcium (8.6-10.3) mg/dl Magnesium (1.7-2.4) mg/dl Total Bilirubin (0.2-1.0) mg/dl AST (13-39) U/L ALT (7-52) U/L Alkaline Phosphatase (34-104) U/L Troponin I High Sens (0-14) pg/ml Total Protein (6.0-8.3) gm/dl Albumin (3.4-5.0) gm/dl Globulin (2.5-4.0) gm/dl Albumin/Globulin Ratio (0.9-2) Procalcitonin 0.32 (0-0.5) ng/ml TSH (0.300-4.500) uIu/ml Free T4 (0.61-1.60) ng/dl Urine Color Dark Yellow Urine Appearance Clear (Clear) Urine pH 5.5 (4.5-7.5) Ur Specific Iron > 1.045 H (1.000-1.030) Urine Protein 1+ H (Negative) Urine Glucose (UA) Negative (Negative) Urine Ketones 1+ H (Negative) Urine Blood 3+ H (Negative) Urine Nitrite Negative (Negative) Urine Bilirubin Negative (Negative) Urine Urobilinogen Negative (Negative) Ur Leukocyte Esterase Negative (Negative) Urine WBC (Auto) 1-5 (0-5) /hpf Urine RBC (Auto) 10-30 H (0-4) /hpf U Hyaline Cast (Auto) 1-5 (0-5) /lpf U Epithel Cells (Auto) 10-20 H (0-5) /lpf Urine Bacteria (Auto) Negative (Negative) Administered Medications Heparin Sodium (Porcine) (Heparin Sod 5,000 Unit/0.5 Ml Vial) 5,000 units SQ Q12 ARVIND Stop: 07/29/23 20:59 Last Admin: 06/29/23 21:11 Dose: 5,000 units Documented By: [facility] Potassium Chloride/Sodium Chloride (Normal Saline W/20 Meq Kcl) 20 meq in 1,000 mls @ 80 mls/hr IV .[id number] ARVIND; Protocol Stop: 07/29/23 20:17 Last Admin: 06/29/23 21:10 Dose: 80 mls/hr Documented By: [facility] [place] [place] Famotidine 20 mg/ Syringe 5 mls @ 2.5 mls/min IV Q12 ARVIND Stop: 07/29/23 20:59 Last Admin: 06/29/23 21:11 Dose: 2.5 mls/min Documented By: [facility] [place] [place] Pravastatin Sodium (Pravastatin Sod 20 Mg Tab) 20 mg PO HS ARVIND Stop: 07/29/23 20:59 Last Admin: 06/29/23 21:11 Dose: 20 mg Documented By: [facility] [place] [place] Discontinued Medications Sodium Chloride (Nss 1000ml) 1,000 mls @ 999 mls/hr IV .[id number] ONE Stop: 06/29/23 17:24 Last Infusion: 06/29/23 17:59 Dose: 0 mls/hr Documented By: Admin: 06/29/23 16:48 Dose: 999 mls/hr Documented By: KAYA Cefepime HCl (Maxipime) 2,000 mg in 20 mls @ 5 mls/min IV NOW STA; Protocol Stop: 06/29/23 16:27 Last Admin: 06/29/23 17:53 Dose: 5 mls/min Documented By: KAYA Piperacillin Sod/Tazobactam (Sod 4.5 gm/ Dextrose) 120 mls @ 240 mls/hr IV ONE ONE; Protocol Stop: 06/29/23 21:29 Last Infusion: 06/29/23 22:23 Dose: 0 mls/hr Documented By: Admin: 06/29/23 21:51 Dose: 240 mls/hr Documented By: BREEZY Ioversol (Optiray 320 100ml) 93 ml IV ONCE ONE Stop: 06/29/23 17:08 Last Admin: 06/29/23 17:08 Dose: 93 ml Documented By: JUAN Ketorolac Tromethamine (Ketorolac Tromethamine 15 Mg/Ml Vial) 10 mg IV NOW ONE Stop: 06/29/23 18:53 Last Admin: 06/29/23 19:11 Dose: 10 mg Documented By: KAYA Ondansetron HCl (Ondansetron Inj 2 Mg/Ml 2 Ml Vial) 4 mg IV NOW STA Stop: 06/29/23 16:25 Last Admin: 06/29/23 17:53 Dose: 4 mg Documented By: KAYA Imaging Data Radiologist's Impression: Abdomen/Pelvis CT 06/29/23 16:[address] WITH IV CONTRAST HISTORY: Acute nausea with vomiting nv, chills TECHNIQUE: Multiaxial CT images of the abdomen and pelvis were performed following the IV administration of 93 cc of Optiray, A dose lowering technique was utilized adhering to the principles of ALARA. COMPARISON STUDY: None. FINDINGS: Cardiomegaly. Mild bibasilar atelectasis. 2.8 cm thin-walled cyst within the basal left lower lobe. Study is motion degraded. There is no pneumatosis or pneumoperitoneum. Unremarkable spleen, mildly atrophic pancreas and adrenal glands. The gallbladder is distended. Mild dilation of the common bile duct measuring up to 9 mm. No obstructing biliary stone or lesion identifi ed. Unremarkable liver. Patent portal vein. Cysts of the kidneys measure up to 2.9 cm on the right. No hydronephrosis. While nonspecific urinary bladder wall thickening. Heterogeneous uterus. 2.7 cm fundal lesion of the uterus. Atherosclerosis of the aorta without aneurysm. No lymphadenopathy. No bowel obstruction or bowel wall thickening. Moderate to extensive fecal retention. Normal appendix. Mild generalized body wall edema. No acute fracture identified. Left hip arthroplasty. Mild lumbar levoscoliosis. IMPRESSION: 1. No bowel obstruction or bowel wall thickening identified. 2. Moderate to extensive fecal retention. 3. Distended gallbladder with mild nonspecific dilation of the common bile duct. Findings could be correlated with right upper quadrant ultrasound. 4. Heterogeneous uterus with probable fibroids. 5. Additional findings as above. ACT 112: Negative or not required by law. The above report was generated using voice recognition software. It may contain grammatical, syntax or spelling errors. Electronically signed by: Jeff Patton M.D. 06/29/2023 5:[address] 06/29/23 16:24 CT head/brain wo con CLINICAL HISTORY: 88 years-old Female with weakness. Acute weakness with nausea and vomiting TECHNIQUE: Multiple axial CT images of the head were obtained without contrast. A dose lowering technique was utilized adhering to the principles of ALARA. CT DOSE: 1668.01 mGy.cm COMPARISON: 09/11/2022 FINDINGS: Motion degraded exam. No acute intracranial hemorrhage, midline shift, int racranial mass, hydrocephalus, territorial ischemia or abnormal extra-axial collection. Involutional changes with chronic microvascular ischemic disease. The calvarium is intact. Prior bilateral lens repair. The paranasal sinuses, mastoid air cells, and middle ear cavities are clear. IMPRESSION: Motion degraded exam. No acute intracranial abnormality identified. ACT 112: Negative or not required by law. The above report was generated using voice recognition software. It may contain grammatical, syntax or spelling errors. Electronically signed by: Jeff Patton M.D. 06/29/2023 5:19 PM Chest X-Ray 06/29/23 17:07 XR chest 1V portable HISTORY: 88 years-old Female weak acute weakness COMPARISON: 09/11/2022 TECHNIQUE: AP view of the chest FINDINGS: Cardiac silhouette is enlarged. Probable nipple shadow projecting over the right lung base. No pneumothorax, pleural effusion, airspace consolidation or pulmonary edema. Bones appear grossly intact. Right shoulder arthroplasty. Contrast noted within the renal collecting systems. IMPRESSION: No acute process. ACT 112: Negative or not required by law. The above report was generated using voice recognition software. It may contain grammatical, syntax or spelling errors. Electronically signed by: Jeff Patton M.D. 06/29/2023 6:36 PM Exam(s): US GALLBLADDER EXAM: US Abdomen Limited, Gallbladder CLINICAL HISTORY: Reason for exam: ruq pain. TECHNIQUE: Real-time ultrasound of the right upper quadrant with image documentation. COMPARISON: None. FINDINGS: Liver: The liver measures 14.4 cm. Normal hepatopedal flow of the portal vein. Gallbladder: Slightly over distended gallbladder. Areas of echoes within the gallbladder suggestive of sludge. 3 mm hyperechoic structure along the wall most compatible with polyp, non-mobile. Suboptimally seen gallbladder wall with no area of significant thickening. Common bile duct: The common bile duct measures 8 mm, at the higher limits of normal given patient's age. No stones. No dilation. Pancreas: There is a small anechoic structure within the pancreatic body measuring 3.4 mm, likely cyst. Right kidney: The right kidney is visualized with no hydronephrosis, otherwise not measured. There is a cyst measuring 2.4 x 2.5 x 2.9 cm in the upper pole of the right kidney with minimal small septation. IMPRESSION: 1. 2.9 cm Bosniak 2 benign cyst within the right kidney with no further follow-up imaging recommended. 2. Distention of the common bile duct up to 8 mm, nonspecific and commonly associated with advanced age. No gallstones or signs of acute cholecystitis. 3. 3 mm gallbladder polyp with small amount of sludge. 4. Remainder of the right upper quadrant ultrasound unremarkable. Electronically signed by: Alyssa Noel MD Discharge Plan Visit Data Chief Complaint: Dehydration Stated Complaint: DYHYDRATED, REF BY ED Provider: Ashu Goldstein Discharge Problem: Weakness, Leukocytosis, Acute hyponatremia, Ambulatory dysfunction Patient Disposition: Admitted As Inpatient Condition: Fair Discharge Instructions Interventions: ED Discharge Assessment Last Done: 06/29/23 19:46
[2023-06-29] MEDS ORDERED: OPTIRAY 320 100ml IV ONE (17:07)
[2023-06-29 17:18] LABS: Magnesium 1.9 mg/dl (1.7-2.4)
--- NOTE | 2023-06-29 17:21 | CT Scan Report ---
CT head/brain wo con CLINICAL HISTORY: 88 years-old Female with weakness. Acute weakness with nausea and vomiting TECHNIQUE: Multiple axial CT images of the head were obtained without contrast. A dose lowering tech nique was utilized adhering to the principles of ALARA. CT DOSE: 1668.01 mGy.cm COMPARISON: 09/11/2022 FINDINGS: Motion degraded exam. No acute intracranial hemorrhage, midline shift, intracranial mass, hydrocephal us, territorial ischemia or abnormal extra-axial collection. Involutional changes with chronic microv ascular ischemic disease. The calvarium is intact. Prior bilateral lens repair. The paranasal sinuses, mastoid air cells, and m iddle ear cavities are clear. IMPRESSION: Motion degraded exam. No acute intracranial abnormality identified. ACT 112: Negative or not required by law. The above report was generated using voice recognition software. It may contain grammatical, syntax o r spelling errors. Electronically signed by: Jeff Patton M.D. 06/29/2023 5:19 PM
[2023-06-29 17:27] LABS: Troponin I High Sensitivity 19.8 pg/ml (0-14)
--- NOTE | 2023-06-29 17:28 | CT Scan Report ---
ABDOMEN AND PELVIS CT WITH IV CONTRAST HISTORY: Acute nausea with vomiting nv, chills TECHNIQUE: Multiaxial CT images of the abdomen and pelvis were performed following the IV administrat ion of 93 cc of Optiray, A dose lowering technique was utilized adhering to the principles of ALARA. COMPARISON STUDY: None. FINDINGS: Cardiomegaly. Mild bibasilar atelectasis. 2.8 cm thin-walled cyst within the basal left low er lobe. Study is motion degraded. There is no pneumatosis or pneumoperitoneum. Unremarkable spleen, mildly atrophic pancreas and adrenal glands. The gallbladder is distended. Mild dilation of the commo n bile duct measuring up to 9 mm. No obstructing biliary stone or lesion identified. Unremarkable arslan er. Patent portal vein. Cysts of the kidneys measure up to 2.9 cm on the right. No hydronephrosis. While nonspecific urinary bladder wall thickening. Heterogeneous uterus. 2.7 cm fundal lesion of the uterus. Atherosclerosis of the aorta without aneurysm. No lymphadenopathy. No bowel obstruction or bowel wall thickening. Moder ate to extensive fecal retention. Normal appendix. Mild generalized body wall edema. No acute fractur e identified. Left hip arthroplasty. Mild lumbar levoscoliosis. IMPRESSION: 1. No bowel obstruction or bowel wall thickening identified. 2. Moderate to extensive fecal retention. 3. Distended gallbladder with mild nonspecific dilation of the common bile duct. Findings could be co rrelated with right upper quadrant ultrasound. 4. Heterogeneous uterus with probable fibroids. 5. Additional findings as above. ACT 112: Negative or not required by law. The above report was generated using voice recognition software. It may contain grammatical, syntax o r spelling errors. Electronically signed by: Jeff Patton M.D. 06/29/2023 5:27 PM
[2023-06-29 17:55] LABS: Thyroid Stimulating Hormone 4.65 uIu/ml (0.300-4.500)
[2023-06-29 18:28] LABS: T4 Free Thyroxine 1.09 ng/dl (0.61-1.60)
--- NOTE | 2023-06-29 18:37 | XRay Report ---
XR chest 1V portable HISTORY: 88 years-old Female weak acute weakness COMPARISON: 09/11/2022 TECHNIQUE: AP view of the chest FINDINGS: Cardiac silhouette is enlarged. Probable nipple shadow projecting over the right lung base. No pneumo thorax, pleural effusion, airspace consolidation or pulmonary edema. Bones appear grossly intact. Rig ht shoulder arthroplasty. Contrast noted within the renal collecting systems. IMPRESSION: No acute process. ACT 112: Negative or not required by law. The above report was generated using voice recognition software. It may contain grammatical, syntax o r spelling errors. Electronically signed by: Jeff Patton M.D. 06/29/2023 6:36 PM
--- NOTE | 2023-06-29 18:43 | History & Physical Report ---
Date of Service June 29, 2023 Assessment & Plan (1) History of progressive weakness: (2) Dementia: (3) Vitamin D deficiency: (4) HTN (hypertension): (5) Hypothyroidism: (6) Dyslipidemia: (7) Osteoarthritis: (8) Abnormal CT scan, gallbladder: (9) Dehydration: Plan History of progressive generalized weakness/ambulatory dysfunction/inability to care for herself at home- Patient has dementia, may have a superimposed metabolic encephalopathy as well Will need PT/OT assessment prior to discharge Abnormal gallbladder on CT scan- Patient may have cholecystitis to explain her progressive decline Received cefepime 2 g IV in the ED, will continue as Zosyn 4.5 g IV every 8 hour s N.p.o. except medications Order ultrasound the right upper quadrant of abdomen May need HIDA scan in the a.m. Dehydration- Has had significantly decreased oral intake over the past weeks to months Based on NSS + KCl 20 mill equivalents at 80 mils per hour Hypothyroidism- Continue levothyroxine History of Present Illness Chief Complaint: The patient is brought to the emergency department by her son, who notes that over the past few months she has had increased difficulty getting around, unable to perform daily activities, and today he found her on the floor, and unable to get up. Primary Care Provider: Roscoe Mendiola MD The patient is a 88-year-old female with a past medical history including hypercalcemia, dementia, vitamin D deficiency, aortic valve insufficiency, osteoporosis, hypertension, dyslipidemia, hypothyroidism and left hip pain. She has had gradual decline over the past few months, which was more abrupt today when he found her on the floor and unable to get up. Allergies Allergy/AdvReac Type Severity Reaction Status Date / Time morphine AdvReac Intermediate nausea Verified 06/29/23 16:28 vomiting Home Medications Medication Instructions Recorded Confirmed Type cholecalciferol (vitamin D3) 50 50 mcg PO DAILY 09/28/19 06/29/23 History mcg (2,000 unit) capsule antiarthritic combination no.2 900 900 mg PO DAILY 07/08/22 06/29/23 History mg tablet (glucosamine-chondroitin) pravastatin 20 mg tablet 20 mg PO HS #90 tabs 10/23/22 06/29/23 Rx calcium carbonate 600 mg-vitamin 1 tab PO DAILY 06/29/23 06/29/23 History D3 10 mcg (400 unit) tablet (Calcium 600 + D(3)) levothyroxine 100 mcg tablet 100 mcg PO DAILYBB 06/29/23 06/29/23 History (Synthroid) Past Med/Surg History Medical History Dyslipidemia Hypercholesterolemia Osteoarthritis Sciatica Uterine leiomyoma Surgical History Hx of shoulder replacement S/P hip replacement S/P tonsillectomy and adenoidectomy Status post total shoulder arthroplasty Family History Father COPD (chronic obstructive pulmonary disease) Mother Hypertension Daughter Breast cancer Grandmother (Maternal) Colon cancer Denies family history of Ovarian cancer Prostate cancer Myocardial infarction Social History Smoking Status: Never smoker Second Hand Exposure: No; Do You Dip or Chew Tobacco: No; Hx Alcohol Use: No Hx Substance Use: No Preferred Language: Albanian Communication Ability: Effective Visual Impairment: No Limitations Hearing Ability: Normal marital status: Current Living Situation: Spouse current occupational status: retired Feels Safe at Home: Yes Dental Care, Regularly: Yes Physical Activity Frequency: Other Physical Activity Frequency Comment: 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 HEENT--PERRL, EOMI, mucous membranes and oropharynx dry. Neck--supple. No JVD. No bruits. Thyroid normal, trachea midline, no adenopathy. Heart--normal S1 and S2. No murmurs, rubs or gallops. Lungs--clear bilaterally, no respiratory distress, no accessory muscle use. Abdomen--normal bowel sounds and soft. Nontender. Nondistended, no hernias or masses, no organomegaly. Extremities--right lower extremity 1+ pitting edema. Left lower extremity 2+ pitting edema Dermatologic--normal skin turgor, normal color, no abnormal lymph nodes, no rash. Neurologic--cranial nerves II through XII grossly intact. Rheumatologic--limited exam. Psychiatric--somewhat confused and disoriented. Results & Data Results & Data Vital Signs (Past 12 Hours) Vital Signs Temp Pulse Resp BP Pulse Ox O2 Del Method 06/29/23 16:27 92 H 06/29/23 13:10 37.2 C 59 L 20 134/75 99 Room Air Laboratory Results Laboratory Results WBC 13.93 K/ul (4.8-10.8) H 06/29/23 13:54 RBC 4.77 M/uL (4.20-5.40) 06/29/23 13:54 Hgb 14.1 g/dl (12.0-16.0) 06/29/23 13:54 Hct 42.3 % (37.0-47.0) 06/29/23 13:54 MCV 88.7 fL (80.0-100.0) 06/29/23 13:54 MCH 29.6 pg (25.0-34.0) 06/29/23 13:54 MCHC 33.3 g/dL (32.0-36.0) 06/29/23 13:54 RDW Std Deviation 44.5 fL (36.4-46.3) 06/29/23 13:54 RDW Coeff of Corby 13.7 % (11.5-14.5) 06/29/23 13:54 Plt Count 486 K/uL (130-400) H 06/29/23 13:54 MPV 10.6 fL (9.4-12.4) 06/29/23 13:54 Immature Gran % (Auto) 0.3 % 06/29/23 13:54 Neut % (Auto) 82.0 % 06/29/23 13:54 Lymph % (Auto) 8.9 % 06/29/23 13:54 Ellis % (Auto) 8.5 % 06/29/23 13:54 Eos % (Auto) 0.1 % 06/29/23 13:54 Baso % (Auto) 0.2 % 06/29/23 13:54 Neut # (Auto) 11.42 K/uL (1.40-6.50) H 06/29/23 13:54 Lymph # (Auto) 1.24 K/uL (1.2-3.4) 06/29/23 13:54 Ellis # (Auto) 1.18 K/uL (0.11-0.59) H 06/29/23 13:54 Eos # (Auto) 0.02 K/uL (0-0.50) 06/29/23 13:54 Baso # (Auto) 0.03 K/uL (0-0.2) 06/29/23 13:54 Immature Gran # (Auto) 0.04 K/uL (0.01-0.20) 06/29/23 13:54 Sodium 131 mmol/L (136-145) L 06/29/23 13:54 Potassium 3.8 mmol/L (3.5-5.1) 06/29/23 13:54 Chloride 94 mmol/L (98-107) L 06/29/23 13:54 Carbon Dioxide 28 mmol/L (21-32) 06/29/23 13:54 Anion Gap 9 (3-11) 06/29/23 13:54 BUN 23 mg/dl (6-23) 06/29/23 13:54 Creatinine 0.72 mg/dl (0.6-1.2) 06/29/23 13:54 Est Cr Clr Drug Dosing Not Reportable 06/29/23 13:54 Est GFR ( Amer) 86.1 ml/min 06/29/23 13:54 Est GFR (Non-Af Amer) 74.3 ml/min 06/29/23 13:54 BUN/Creatinine Ratio 31.9 (10-20) H 06/29/23 13:54 Glucose 164 mg/dl (70-99(Fasting)) H 06/29/23 13:54 Lactate 1.9 mmol/L (0.4-2.0) 06/29/23 16:40 Calcium 9.8 mg/dl (8.6-10.3) 06/29/23 13:54 Magnesium 1.9 mg/dl (1.7-2.4) 06/29/23 13:54 Total Bilirubin 1.4 mg/dl (0.2-1.0) H 06/29/23 13:54 AST 26 U/L (13-39) 06/29/23 13:54 ALT 15 U/L (7-52) 06/29/23 13:54 Alkaline Phosphatase 75 U/L (34-104) 06/29/23 13:54 Troponin I High Sens 19.8 pg/ml (0-14) H 06/29/23 13:54 Total Protein 7.5 gm/dl (6.0-8.3) 06/29/23 13:54 Albumin 3.7 gm/dl (3.4-5.0) 06/29/23 13:54 Globulin 3.8 gm/dl (2.5-4.0) 06/29/23 13:54 Albumin/Globulin Ratio 1.0 (0.9-2) 06/29/23 13:54 Procalcitonin 0.32 ng/ml (0-0.5) 06/29/23 13:54 TSH 4.650 uIu/ml (0.300-4.500) H 06/29/23 13:54 Free T4 1.09 ng/dl (0.61-1.60) 06/29/23 13:54 Impressions Abdomen/Pelvis CT 06/29/23 16:[address] WITH IV CONTRAST HISTORY: Acute nausea with vomiting nv, chills TECHNIQUE: Multiaxial CT images of the abdomen and pelvis were performed following the IV administration of 93 cc of Optiray, A dose lowering technique was utilized adhering to the principles of ALARA. COMPARISON STUDY: None. FINDINGS: Cardiomegaly. Mild bibasilar atelectasis. 2.8 cm thin-walled cyst within the basal left lower lobe. Study is motion degraded. There is no pneumatosis or pneumoperitoneum. Unremarkable spleen, mildly atrophic pancreas and adrenal glands. The gallbladder is distended. Mild dilation of the common bile duct measuring up to 9 mm. No obstructing biliary stone or lesion identified. Unremarkable liver. Patent portal vein. Cysts of the kidneys measure up to 2.9 cm on the right. No hydronephrosis. While nonspecific urinary bladder wall thickening. Heterogeneous uterus. 2.7 cm fundal lesion of the uterus. Atherosclerosis of the aorta without aneurysm. No lymphadenopathy. No bowel obstruction or bowel wall thickening. Moderate to extensive fecal retention. Normal appendix. Mild generalized body wall edema. No acute fracture identified. Left hip arthroplasty. Mild lumbar levoscoliosis. IMPRESSION: 1. No bowel obstruction or bowel wall thickening identified. 2. Moderate to extensive fecal retention. 3. Distended gallbladder with mild nonspecific dilation of the common bile duct. Findings could be correlated with right upper quadrant ultrasound. 4. Heterogeneous uterus with probable fibroids. 5. Additional findings as above. ACT 112: Negative or not required by law. The above report was generated using voice recognition software. It may contain grammatical, syntax or spelling errors. Electronically signed by: Jeff Patton M.D. 06/29/2023 5:[address] 06/29/23 16:24 CT head/brain wo con CLINICAL HISTORY: 88 years-old Female with weakness. Acute weakness with nausea and vomiting TECHNIQUE: Multiple axial CT images of the head were obtained without contrast. A dose lowering technique was utilized adhering to the principles of ALARA. CT DOSE: 1668.01 mGy.cm COMPARISON: 09/11/2022 FINDINGS: Motion degraded exam. No acute intracranial hemorrhage, midline shift, intracranial mass, hydrocephalus, territorial ischemia or abnormal extra-axial collection. Involutional changes with chronic microvascular ischemic disease. The calvarium is intact. Prior bilateral lens repair. The paranasal sinuses, mastoid air cells, and middle ear cavities are clear. IMPRESSION: Motion degraded exam. No acute intracranial abnormality identified. ACT 112: Negative or not required by law. The above report was generated using voice recognition software. It may contain grammatical, syntax or spelling errors. Electronically signed by: Jeff Patton M.D. 06/29/2023 5:19 PM Chest X-Ray 06/29/23 17:07 XR chest 1V portable HISTORY: 88 years-old Female weak acute weakness COMPARISON: 09/11/2022 TECHNIQUE: AP view of the chest FINDINGS: Cardiac silhouette is enlarged. Probable nipple shadow projecting over the right lung base. No pneumothorax, pleural effusion, airspace consolidation or pulmonary edema. Bones appear grossly intact. Right shoulder arthroplasty. Contrast noted within the renal collecting systems. IMPRESSION: No acute process. ACT 112: Negative or not required by law. The above report was generated using voice recognition software. It may contain grammatical, syntax or spelling errors. Electronically signed by: Jeff Patton M.D. 06/29/2023 6:36 PM Code Status & VTE Plan Code Status Full code VTE Prophylaxis Plan VTE Prophylaxis will be ordered: Yes PG Care Time/CCT Total # of Minutes Spent Total Time Spent with Patient: Total time spent is greater than 50% in coordination of care (as documented) at patient's floor/unit and/or counseling patient: Coding Level of Care Code 47039 INT INP/OBS CARE 375MIN Diagnoses History of progressive weakness Z87.898 Dementia F03.90 Vitamin D deficiency E55.9 HTN (hypertension) I10 Hypothyroidism E03.9 Dyslipidemia E78.[address] scan, gallbladder R93.2 Dehydration E86.0
[2023-06-29] MEDS ORDERED: KETOROLAC TROMETHAMINE 15 MG/ML VIAL IV ONE (18:52)
[2023-06-29 19:01] LABS: Appearance Urine Clear (Clear); Bacteria Urine Automated Negative (Negative); Bilirubin Urine Negative (Negative); Blood Urine 3+ (Negative); Color Urine Dark Yellow; Glucose Urine UA Negative (Negative); Ketones Urine 1+ (Negative); Leukocyte Esterase Urine Negative (Negative); Nitrite Urine Negative (Negative); Protein Urine 1+ (Negative); Specific Gravity Urine > 1.045 (1.000-1.030); Urobilinogen Urine Negative (Negative); pH Urine 5.5 (4.5-7.5)
[2023-06-29] MEDS ORDERED: PIPERACILLIN/TAZOBACTAM 4.5 GM (over 30 mins) IV ONE (21:00)
[2023-06-29] MEDS ORDERED: PIPERACILLIN/TAZOBACTAM 4.5 GM in DEXTROSE 5% 100 ML IV ONE (21:00)
--- NOTE | 2023-06-29 21:03 | Ultrasound Report ---
Exam(s): US GALLBLADDER EXAM: US Abdomen Limited, Gallbladder CLINICAL HISTORY: Reason for exam: ruq pain. TECHNIQUE: Real-time ultrasound of the right upper quadrant with image documentation. COMPARISON: None. FINDINGS: Liver: The liver measures 14.4 cm. Normal hepatopedal flow of the portal vein. Gallbladder: Slightly over distended gallbladder. Areas of echoes within the gallbladder suggestive of sludge. 3 mm hyperechoic structure along the wall most compatible with polyp, non-mobile. Suboptimally seen gallbladder wall with no area of significant thickening. Common bile duct: The common bile duct measures 8 mm, at the higher limits of normal given patient's age. No stones. No dilation. Pancreas: There is a small anechoic structure within the pancreatic body measuring 3.4 mm, likely cyst. Right kidney: The right kidney is visualized with no hydronephrosis, otherwise not measured. There is a cyst measuring 2.4 x 2.5 x 2.9 cm in the upper pole of the right kidney with minimal small septation. IMPRESSION: 1. 2.9 cm Bosniak 2 benign cyst within the right kidney with no further follow-up imaging recommended. 2. Distention of the common bile duct up to 8 mm, nonspecific and commonly associated with advanced age. No gallstones or signs of acute cholecystitis. 3. 3 mm gallbladder polyp with small amount of sludge. 4. Remainder of the right upper quadrant ultrasound unremarkable. Electronically signed by: Alyssa Noel MD 06/29/23 21:01 PM
[2023-06-29] MEDS: NSS + 20MEQ KCL 20 MEQ/1,000 ML BAG IV SCH (21:10)
[2023-06-29] MEDS: HEPARIN SOD 5,000 UNIT/0.5 ML VIAL SQ SCH (21:11)
[2023-06-29] MEDS: PRAVASTATIN SOD 20 MG TAB PO SCH (21:11)
[2023-06-29] MEDS: FAMOTIDINE 20 MG in SYRINGE 3 ML IV SCH (21:11)
[2023-06-30] MEDS: PIPERACILLIN/TAZOBACTAM 4.5 GM in DEXTROSE 5% 100 ML IV SCH ×3 (04:02→21:34)
[2023-06-30] MEDS: LEVOTHYROXINE SODIUM 100 MCG TABLET PO SCH (05:44)
[2023-06-30 06:52] LABS: Basophils # (auto) 0.04 K/uL (0-0.2); Basophils % (auto) 0.5 %; Eosinophils # (auto) 0.09 K/uL (0-0.50); Hematocrit (blood only) 35.6 % (37.0-47.0); Hemoglobin 11.5 g/dl (12.0-16.0); Immature Granulocytes # (auto) 0.03 K/uL (0.01-0.20); Immature Granulocytes % (auto) 0.3 %; Lymphocytes % (auto) 17.1 %; Mean Corpuscular Hemoglobin 29.1 pg (25.0-34.0); Mean Corpuscular Hgb Conc 32.3 g/dL (32.0-36.0); Mean Corpuscular Volume 90.1 fL (80.0-100.0); Mean Platelet Volume 10.1 fL (9.4-12.4); Monocytes # (auto) 0.85 K/uL (0.11-0.59); Monocytes % (auto) 9.7 %; Neutrophils # (auto) 6.28 K/uL (1.40-6.50); Neutrophils % (auto) 71.4 %; Platelet Count 351 K/uL (130-400); RDW Coefficient of Variation 13.8 % (11.5-14.5); Red Blood Count 3.95 M/uL (4.20-5.40); White Blood Count 8.79 K/ul (4.8-10.8)
[2023-06-30 07:05] LABS: Albumin Level 2.9 gm/dl (3.4-5.0); BUN Creatinine Ratio 31.3 (10-20); Bilirubin,Total 0.8 mg/dl (0.2-1.0); Calcium 8.9 mg/dl (8.6-10.3); Creatinine Clr Calc Pharmacy 47.1 ml/min; Est GFR (African American) 91.7 ml/min; Est GFR (Non-African American) 79.1 ml/min; Globulin 2.8 gm/dl (2.5-4.0); Magnesium 1.9 mg/dl (1.7-2.4); Total Protein 5.7 gm/dl (6.0-8.3)
[2023-06-30] MEDS: FAMOTIDINE 20 MG in SYRINGE 3 ML IV SCH ×2 (08:05→20:23)
[2023-06-30] MEDS: HEPARIN SOD 5,000 UNIT/0.5 ML VIAL SQ SCH ×2 (08:07→20:24)
[2023-06-30] MEDS: CHOLECALCIFEROL 1,000 UNITS 25 MCG TAB PO SCH (08:07)
--- NOTE | 2023-06-30 08:39 | Hospitalist Progress Note ---
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 -Concerned about her home safety with her current functional status, she lives alone and has had decline over the last month. She has children and her son lives 2 miles away and visits and helps often in her care Plan NPO until HIDA, then diet if no concerning findings FULL CODE Heparin for DVT ppx Medical floor Admission and Anticipated Discharge Date Admission Date: June 29, 2023 Subjective Overnight slid out of bed, did not strike her head. Denies abdominal pain today, no nausea. Feeling hungry. Physical Exam 2 Constitutional: WD/WN, vitals as above Respiratory: normal respiratory effort, lungs clear to auscultation Cardiovascular: RRR, no murmur, no edema Gastrointestinal (Abdomen): normal bowel sounds, soft, nontender, no hepatosplenomegaly Skin: no rashes, warm and dry Psychiatric: alert and oriented to self Results & Data Results & Data Vital Signs (Past 12 Hours) Vital Signs Temp Pulse Resp BP Pulse Ox O2 Del Method 06/30/23 07:56 37.1 C 73 17 116/74 95 Room Air PG Care Time/CCT Total # of Minutes Spent Total Time Spent with Patient: Total time spent is greater than 50% in coordination of care (as documented) at patient's floor/unit and/or counseling patient: Coding Level of Care Code 94975 SUB INP/OBS CARE 235MIN Diagnoses Abnormal CT scan, gallbladder R93.2 Dehydration E86.0 Ambulatory dysfunction R26.2 History of progressive weakness Z87.898 Dementia F03.90
[2023-06-30] MEDS: NSS + 20MEQ KCL 20 MEQ/1,000 ML BAG IV SCH ×2 (08:49→21:33)
--- NOTE | 2023-06-30 14:31 | Nuclear Medicine Report ---
NM hepatobiliary CLINICAL HISTORY: 88 years-old Female with eval for GB pathology. TECHNIQUE: Sequential anterior abdominal images were obtained through 70 minutes following the intra venous administration of 5.4 mCi of technetium-99m Choletec. COMPARISON: 06/29/2023 CT abdomen and pelvis FINDINGS: There is prompt, uniform accumulation of the tracer by the liver. There is normal filling of the int rahepatic ducts, common and common bile duct. Through 60 minutes, there is no definite activity ident ified within the duodenum. There is apparent small bowel activity noted on the 70 minute image. The gallbladder fills normally. IMPRESSION: No scintigraphic evidence of acute cholecystitis. ACT 112: Negative or not required by law. The above report was generated using voice recognition software. It may contain grammatical, syntax o r spelling errors. Electronically signed by: Jeff Patton M.D. 06/30/2023 2:30 PM
--- NOTE | 2023-06-30 15:54 | Electrocardiogram Report ---
Test Reason : Blood Pressure : / mmHG Vent. Rate : 105 BPM Atrial Rate : 105 BPM P-R Int : 138 ms QRS Dur : 080 ms QT Int : 314 ms P-R-T Axes : 000 -40 -28 degrees QTc Int : 415 ms Sinus tachycardia Premature atrial complexes Left axis deviation Moderate voltage criteria for LVH, may be normal variant ( R in aVL Abnormal ECG When compared with ECG of 11-SEP-2022 17:18, Inverted T waves have replaced nonspecific T wave abnormality in Inferior leads Confirmed by Roscoe Ledezma ([id number]) on 06/30/2023 3:54:01 PM Referred By: Roscoe Mendiola Confirmed By:Roscoe Ledezma
[2023-06-30] MEDS ORDERED: Nursing to Pharmacy Communication SCH (19:15)
[2023-06-30] MEDS: PRAVASTATIN SOD 20 MG TAB PO SCH (20:24)
[2023-07-01] MEDS: PIPERACILLIN/TAZOBACTAM 4.5 GM in DEXTROSE 5% 100 ML IV SCH (05:55)
[2023-07-01] MEDS: LEVOTHYROXINE SODIUM 100 MCG TABLET PO SCH (05:55)
[2023-07-01 06:33] LABS: Basophils # (auto) 0.03 K/uL (0-0.2); Basophils % (auto) 0.5 %; Eosinophils # (auto) 0.22 K/uL (0-0.50); Eosinophils % (auto) 3.7 %; Hematocrit (blood only) 32.4 % (37.0-47.0); Hemoglobin 10.4 g/dl (12.0-16.0); Immature Granulocytes # (auto) 0.01 K/uL (0.01-0.20); Immature Granulocytes % (auto) 0.2 %; Lymphocytes # (auto) 1.49 K/uL (1.2-3.4); Lymphocytes % (auto) 24.9 %; Mean Corpuscular Hemoglobin 29.4 pg (25.0-34.0); Mean Corpuscular Hgb Conc 32.1 g/dL (32.0-36.0); Mean Corpuscular Volume 91.5 fL (80.0-100.0); Mean Platelet Volume 10.1 fL (9.4-12.4); Monocytes # (auto) 0.46 K/uL (0.11-0.59); Monocytes % (auto) 7.7 %; Neutrophils # (auto) 3.77 K/uL (1.40-6.50); Platelet Count 330 K/uL (130-400); RDW Coefficient of Variation 13.7 % (11.5-14.5); RDW Standard Deviation 45.5 fL (36.4-46.3); Red Blood Count 3.54 M/uL (4.20-5.40); White Blood Count 5.98 K/ul (4.8-10.8)
[2023-07-01 06:46] LABS: Albumin Globulin Ratio 1.1 (0.9-2); Albumin Level 2.7 gm/dl (3.4-5.0); BUN Creatinine Ratio 25.9 (10-20); Bilirubin,Total 0.4 mg/dl (0.2-1.0); Calcium 8.5 mg/dl (8.6-10.3); Creatinine Clr Calc Pharmacy 37.2 ml/min; Est GFR (African American) 74.6 ml/min; Est GFR (Non-African American) 64.4 ml/min; Globulin 2.5 gm/dl (2.5-4.0); Magnesium 1.9 mg/dl (1.7-2.4); Potassium 4.2 mmol/L (3.5-5.1); Total Protein 5.2 gm/dl (6.0-8.3)
[2023-07-01] MEDS: NSS + 20MEQ KCL 20 MEQ/1,000 ML BAG IV SCH (09:24)
[2023-07-01] MEDS: CHOLECALCIFEROL 1,000 UNITS 25 MCG TAB PO SCH (09:26)
[2023-07-01] MEDS: FAMOTIDINE 20 MG in SYRINGE 3 ML IV SCH (09:28)
[2023-07-01] MEDS: HEPARIN SOD 5,000 UNIT/0.5 ML VIAL SQ SCH ×2 (09:28→20:35)
[2023-07-01] MEDS ORDERED: OLANZAPINE 2.5 MG TAB PO ONE (10:50)
--- NOTE | 2023-07-01 17:19 | Hospitalist Progress Note ---
Date of Service July 01, 2023 Assessment & Plan (1) Fall: Plan: unwitnessed but son reports she was so weak her legs gave out and then couldn't get off the lfoor possibly due to infection vs LE edema PT OT recommending rehab (2) Encephalopathy acute: Plan: constipation, acute illness? hospital delirium No PNA on CXR, UA not suggestive of infection HIDA and RUQ US r/u acute cholecystitis Did have leukocytosis on arrival but now resolved however was on ZOsyn which is now stopped check COVID/Flu/RSV-neg work on bowel regimen, good sleep wake cycles start low dose Zyprexa qhs check Lyme, B12, B1 in AM TSH normal (3) Leg swelling: Plan: L>>R and acute on chronic as per son check LLE venous DOppler-neg for DVT but shows large Anne's cyst check BNP, ECHO with 1+ protein on UA< low TProt and albumin Construction Project Coordinator consulted, needs protein shakes diuresis likely only to make renal function worse (4) Anemia: Plan: normocytic, hgb 10 check B12, folate, Fe studies TSH normal (5) Elevated troponin: Plan: mild and repeated today and normal demand ischemia (6) Abnormal CT scan, gallbladder: Plan: -TBili slightly elevated on admission with patient report of emesis at home -CT with evidence of poss cholecystitis, RUQ US with CBD dilation, HIDA normal -Leukocytosis resolved, has been receiving IVF and Zosyn-dc both now (7) Dehydration: Plan: -Progressive decline in nutritional status, dehydrated on admission -received IVFs and now barbara stop given LE edema -nutrition consult (8) Ambulatory dysfunction: Plan: -Progressive, acute on chronic yesterday -PT and OT evaluations while admitted, may need SNF vs. [facility] care (9) Dementia: Plan: -History of, CT Head without any acute intracranial abnormalities -PT and OT, possible placement as above -Patient herself is very forgetful, does not remember sliding out of bed, forgot why she was NPO until I reminded her later in the conversation, answers "I don't know" or "I don't remember" to questions about her meals at home, what medications she is on, etc. -Concerned about her home safety with her current functional status, she lives alone and has had decline over the last month. She has children and her son lives 2 miles away and visits and helps often in her care (10) HTN (hypertension): Plan: BPs mildly elevated not on meds monitor (11) Hypothyroidism: Plan: TSH to be checked here continue home LT4 (12) Osteoporosis: (13) Vitamin D deficiency: Plan FULL CODE Heparin for DVT ppx Medical floor continued stay, may need rehab discussed care with son on phone Admission and Anticipated Discharge Date Admission Date: June 29, 2023 Subjective Pt was agitated and confused this AM as per nursing and pt's son. SHe was paranoid and thought she was being held against her will. SHe was given 2.5mg Zyprexa and did nap. I saw her when she woke up and she was pleasant and oriented x 2 but still confused at times. Her son questions if she has an infection somewhere in her body causing this. He says she has been acting more confused and not like herself the last 2 months. He also reports decreased po intake and felt she was very dehydrated. Physical Exam Constitutional: WD/WN, vitals as above Respiratory: normal respiratory effort, lungs clear to auscultation Cardiovascular: Rate/Rhythm: regular rate and regular rhythm Heart Sounds: no murmur Extremities: + edema (2+ pitting edema LLE,1+ RLE) Gastrointestinal (Abdomen): normal bowel sounds, soft, nontender, no hepatosplenomegaly Neurologic: PERRL, EOMI, accommodation nl, no face palsy, no dysarthria Psychiatric: Orientation: alert, oriented to person, oriented to place and cooperative Results & Data Results & Data Vital Signs (Past 12 Hours) Vital Signs Temp Pulse Resp BP BP Pulse Ox O2 Del Method 07/01/23 15:35 160/79 H 07/01/23 14:55 36.5 C 68 15 182/81 H 97 Room Air 07/01/23 07:17 36.8 C 78 17 145/80 H 96 Room Air Laboratory Results CBC, BMP reviewed PG Care Time/CCT Total # of Minutes Spent Total Time Spent with Patient: Total time spent is greater than 50% in coordination of care (as documented) at patient's floor/unit and/or counseling patient: Coding Level of Care Code 20266 SUB INP/OBS CARE 3/50MIN Diagnoses Fall W19.XXXA Encephalopathy acute G93.40 Leg swelling M79.89 Anemia D64.9 Elevated troponin R77.[address] scan, gallbladder R93.2 Dehydration E86.0 Ambulatory dysfunction R26.2 Dementia F03.90 HTN (hypertension) I10 Hypothyroidism E03.9 Osteoporosis M81.0 Vitamin D deficiency E55.9
[2023-07-01 19:08] LABS: Influenza A virus by PCR Negative (Neg); Influenza B virus by PCR Negative (Neg); RSV by PCR Negative (Neg); SARS CoV2 RNA(COVID-19) Ceph NEGATIVE (Negative)
[2023-07-01] MEDS: OLANZAPINE 2.5 MG TAB PO SCH (20:35)
[2023-07-01] MEDS: PRAVASTATIN SOD 20 MG TAB PO SCH (20:35)
--- NOTE | 2023-07-01 21:27 | Ultrasound Report ---
Exam(s): US VENOUS LEFT LOWER EXTREMITY EXAM: US Duplex Left Lower Extremity Veins CLINICAL HISTORY: Reason for exam: swelling,r/o DVT. TECHNIQUE: Real-time duplex ultrasound scan of the left lower extremity veins integrating B-mode two-dimensional vascular structure, Doppler spectral analysis, color flow Doppler imaging and compression. COMPARISON: No relevant prior studies available. FINDINGS: Deep veins: Unremarkable. No DVT in the visualized common femoral, femoral, proximal deep femoral or popliteal veins. The veins demonstrate normal color flow, are normally compressible, with normal phasic flow and/or augmentation response. Soft tissues: Left popliteal fossa cyst measuring 6.4 x 1.8 x 3.1 cm. IMPRESSION: No evidence of left lower extremity deep venous thrombosis. Left popliteal fossa cyst measuring 6.4 x 1.8 x 3.1 cm. Electronically signed by: Ke Cantu M.D. 07/01/23 21:27 PM
[2023-07-02] MEDS: LEVOTHYROXINE SODIUM 100 MCG TABLET PO SCH (06:04)
[2023-07-02] MEDS: POLYETHYLENE (MIRALAX) 17 GM PACK PO SCH (08:33)
[2023-07-02] MEDS: HEPARIN SOD 5,000 UNIT/0.5 ML VIAL SQ SCH ×2 (08:40→20:27)
[2023-07-02] MEDS: DOCUSATE SODIUM/SENNA 50/8.6MG TAB PO SCH (08:41)
[2023-07-02] MEDS: CHOLECALCIFEROL 1,000 UNITS 25 MCG TAB PO SCH (08:41)
[2023-07-02 09:25] LABS: BUN Creatinine Ratio 30.4 (10-20); Calcium 9.2 mg/dl (8.6-10.3); Creatinine Clr Calc Pharmacy 53.9 ml/min; Est GFR (African American) 95.8 ml/min; Est GFR (Non-African American) 82.7 ml/min; Potassium 3.8 mmol/L (3.5-5.1)
[2023-07-02 09:44] LABS: Ferritin 170.5 ng/ml (8-388)
[2023-07-02 09:46] LABS: Folate (Folic Acid),Ser orPlas 5.51 ng/ml (>5.38)
[2023-07-02 09:51] LABS: Lyme Ab IgG w/WB Rflx Negative (Negative); Lyme Ab IgM w/WB Rflx Negative (Negative)
--- NOTE | 2023-07-02 12:26 | XCELERA ---
[id number] \\[id number]
[2023-07-02] MEDS: THIAMINE HCL 100 MG TAB PO SCH (12:28)
[2023-07-02] MEDS: FOLIC ACID 1 MG TAB PO SCH (12:28)
--- NOTE | 2023-07-02 17:05 | Hospitalist Progress Note ---
Date of Service July 02, 2023 Assessment & Plan (1) Fall: Plan: unwitnessed but son reports she was so weak her legs gave out and then couldn't get off the lfoor possibly due to infection vs LE edema Improving PT OT recommending rehab (2) Encephalopathy acute: Plan: Now much improved with zyprexa and getting more sleep, moving bowels cause possibly combination of constipation, acute illness, hospital delirium No PNA on CXR, UA not suggestive of infection HIDA and RUQ US r/u acute cholecystitis Did have leukocytosis on arrival but now resolved however was on ZOsyn which is now stopped checked COVID/Flu/RSV-neg continue to work on bowel regimen, good sleep wake cycles continue low dose Zyprexa qhs Lyme negative, B12 normal, B1 drawn and pending-start empiric thiamine 200mg po daily Folate low normal-replace TSH normal (3) Leg swelling: Plan: L>>R and acute on chronic as per son checked LLE venous DOppler-neg for DVT but shows large Anne's cyst BNP mildly elevated, ECHO normal with 1+ protein on UA< low TProt and albumin Sawsmith consulted, needs protein shakes diuresis likely only to make renal function worse add JORDI guerrero (4) Anemia: Plan: normocytic, hgb 10 checked B12, folate, Fe studies--> show borderline folate deficiency, anemia of chronic disease TSH normal -add folic acid 1mg po daily (5) Elevated troponin: Plan: mild and repeat normal demand ischemia (6) Abnormal CT scan, gallbladder: Plan: -TBili slightly elevated on admission with patient report of emesis at home -CT with evidence of poss cholecystitis, RUQ US with CBD dilation, HIDA normal -Leukocytosis resolved, has been receiving IVF and Zosyn-have both since been dcd (7) Dehydration: Plan: -Progressive decline in nutritional status, dehydrated on admission -received IVFs -nutrition consult (8) Ambulatory dysfunction: Plan: -Progressive, acute on chronic yesterday -PT and OT evaluations while admitted, will need SNF (9) Dementia: Plan: -History of, CT Head without any acute intracranial abnormalities -PT and OT, possible placement as above -Patient herself is very forgetful, does not remember sliding out of bed, forgot why she was NPO until I reminded her later in the conversation, answers "I don't know" or "I don't remember" to questions about her meals at home, what medications she is on, etc. -Concerned about her home safety with her current functional status, she lives alone and has had decline over the last month. She has children and her son lives 2 miles away and visits and helps often in her care -check B1 level-pending and will start empiric thiamine (10) HTN (hypertension): Plan: BPs mildly elevated not on meds monitor (11) Hypothyroidism: Plan: TSH here normal continue home LT4 dose (12) Osteoporosis: (13) Vitamin D deficiency: Plan FULL CODE Heparin for DVT ppx Medical floor continued stay, awaiting rehab MEDICALLY STABLE FOR DISCHARGE Admission and Anticipated Discharge Date Admission Date: June 29, 2023 Anticipated date of discharge: 07/03/23 Subjective Much improved mentation today. Reports sleeping better but still waking up every few hours. No pain anywhere, no CP, SOB. No BM since 06/30. Physical Exam Constitutional: WD/WN, vitals as above Respiratory: normal respiratory effort, lungs clear to auscultation Cardiovascular: Rate/Rhythm: regular rate and regular rhythm Heart Sounds: no murmur Extremities: + edema (2+ pitting edema LLE,1+ RLE) Gastrointestinal (Abdomen): normal bowel sounds, soft, nontender, no hepatosplenomegaly Neurologic: PERRL, EOMI, accommodation nl, no face palsy, no dysarthria Psychiatric: Orientation: alert, oriented to person, oriented to place and cooperative Speech: normal rate/rhythm/volume of speech; no pressured speech Results & Data Results & Data Vital Signs (Past 12 Hours) Vital Signs Temp Pulse Resp BP Pulse Ox O2 Del Method 07/02/23 14:31 36.9 C 75 14 163/91 H 97 Room Air 07/02/23 07:23 36.7 C 64 15 150/80 H 96 Room Air Laboratory Results B12, folate, Lyme titer, Fe studies, COVID/Flu/RSV all reviewed Diagnostic Findings ECHO mild MR, otherwie normal PG Care Time/CCT Total # of Minutes Spent Total Time Spent with Patient: Total time spent is greater than 50% in coordination of care (as documented) at patient's floor/unit and/or counseling patient: Coding Level of Care Code 24082 SUB INP/OBS CARE 12/10MIN Diagnoses Fall W19.XXXA Encephalopathy acute G93.40 Leg swelling M79.89 Anemia D64.9 Elevated troponin R77.[address] scan, gallbladder R93.2 Dehydration E86.0 Ambulatory dysfunction R26.2 Dementia F03.90 HTN (hypertension) I10 Hypothyroidism E03.9 Osteoporosis M81.0 Vitamin D deficiency E55.9
[2023-07-02] MEDS: PRAVASTATIN SOD 20 MG TAB PO SCH (20:28)
[2023-07-02] MEDS: OLANZAPINE 2.5 MG TAB PO SCH (20:28)
[2023-07-03] MEDS: LEVOTHYROXINE SODIUM 100 MCG TABLET PO SCH (05:47)
[2023-07-03] MEDS: POLYETHYLENE (MIRALAX) 17 GM PACK PO SCH (08:15)
[2023-07-03] MEDS: CHOLECALCIFEROL 1,000 UNITS 25 MCG TAB PO SCH (08:16)
[2023-07-03] MEDS: HEPARIN SOD 5,000 UNIT/0.5 ML VIAL SQ SCH ×2 (08:16→20:08)
[2023-07-03] MEDS: DOCUSATE SODIUM/SENNA 50/8.6MG TAB PO SCH (08:16)
[2023-07-03] MEDS: FOLIC ACID 1 MG TAB PO SCH (08:16)
[2023-07-03] MEDS: THIAMINE HCL 100 MG TAB PO SCH (08:16)
[2023-07-03] MEDS: CHLORTHALIDONE 25 MG TAB PO SCH (12:33)
--- NOTE | 2023-07-03 16:00 | Hospitalist Progress Note ---
Date of Service July 03, 2023 Assessment & Plan (1) Fall: Plan: unwitnessed but son reports she was so weak her legs gave out and then couldn't get off the lfoor possibly due to infection vs LE edema Improving PT OT recommending rehab (2) Encephalopathy acute: Plan: Now much improved with zyprexa and getting more sleep, moving bowels cause possibly combination of constipation, acute illness, hospital delirium No PNA on CXR, UA not suggestive of infection HIDA and RUQ US r/u acute cholecystitis Did have leukocytosis on arrival but now resolved however was on ZOsyn which is now stopped checked COVID/Flu/RSV-neg continue to work on bowel regimen, good sleep wake cycles continue low dose Zyprexa qhs Lyme negative, B12 normal, B1 drawn and pending-started empiric thiamine 200mg po daily Folate low normal-replace with po floic acid TSH normal (3) Leg swelling: Plan: L>>R and acute on chronic as per son checked LLE venous DOppler-neg for DVT but shows large Anne's cyst BNP mildly elevated, ECHO normal with 1+ protein on UA< low TProt and albumin Roping Tender consulted, needs protein shakes Improved now with adding JORDI hose starting chlorthalidone 12.5mg po daily for HTN and will help swelling (4) Anemia: Plan: normocytic, hgb 10 checked B12, folate, Fe studies--> show borderline folate deficiency, anemia of chronic disease TSH normal -added folic acid 1mg po daily (5) Elevated troponin: Plan: mild and repeat normal demand ischemia (6) Abnormal CT scan, gallbladder: Plan: -TBili slightly elevated on admission with patient report of emesis at home -CT with evidence of poss cholecystitis, RUQ US with CBD dilation, HIDA normal -Leukocytosis resolved, has been receiving IVF and Zosyn-have both since been dcd (7) Dehydration: Plan: -Progressive decline in nutritional status, dehydrated on admission -received IVFs -nutrition consult (8) Ambulatory dysfunction: Plan: -Progressive, acute on chronic yesterday -PT and OT evaluations while admitted, will need SNF (9) Dementia: Plan: -History of, CT Head without any acute intracranial abnormalities -PT and OT, possible placement as above -Patient herself is very forgetful, does not remember sliding out of bed, forgot why she was NPO until I reminded her later in the conversation, answers "I don't know" or "I don't remember" to questions about her meals at home, what medications she is on, etc. -Concerned about her home safety with her current functional status, she lives alone and has had decline over the last month. She has children and her son lives 2 miles away and visits and helps often in her care -check B1 level-pending and started empiric thiamine (10) HTN (hypertension): Plan: BPs becoming more elevated not on meds at home start chlorthalidone 12.5mg po daily monitor (11) Hypothyroidism: Plan: TSH here normal continue home LT4 dose (12) Osteoporosis: (13) Vitamin D deficiency: Plan FULL CODE Heparin for DVT ppx Medical floor continued stay, awaiting rehab MEDICALLY STABLE FOR DISCHARGE Admission and Anticipated Discharge Date Admission Date: June 29, 2023 Subjective Pt was out of bed to the bathroom frequently overnight and didn't get as much sleep as oer nursing. Pt otherwise has no complaints. Still slightly forgetful at times. No other issues except elevated BPs Physical Exam Constitutional: WD/WN, vitals as above Respiratory: normal respiratory effort, lungs clear to auscultation Cardiovascular: Rate/Rhythm: regular rate and regular rhythm Heart Sounds: no murmur Extremities: + edema (1+ pitting edema LLE,trace+ RLE, much improved, JORDI hose in place) Gastrointestinal (Abdomen): normal bowel sounds, soft, nontender, no hepatosplenomegaly Psychiatric: Orientation: alert, oriented to person, oriented to place and cooperative Speech: normal rate/rhythm/volume of speech; no pressured speech Results & Data Results & Data Vital Signs (Past 12 Hours) Vital Signs Temp Pulse Resp BP Pulse Ox O2 Del Method 07/03/23 14:30 36.8 C 73 18 124/75 94 Room Air 07/03/23 12:31 79 143/86 H 07/03/23 07:29 36.8 C 78 18 168/90 H 95 Room Air PG Care Time/CCT Total # of Minutes Spent Total Time Spent with Patient: Total time spent is greater than 50% in coordination of care (as documented) at patient's floor/unit and/or counseling patient: Coding Level of Care Code 75544 SUB INP/OBS CARE 2/35MIN Diagnoses Fall W19.XXXA Encephalopathy acute G93.40 Leg swelling M79.89 Anemia D64.9 Elevated troponin R77.[address] scan, gallbladder R93.2 Dehydration E86.0 Ambulatory dysfunction R26.2 Dementia F03.90 HTN (hypertension) I10 Hypothyroidism E03.9 Osteoporosis M81.0 Vitamin D deficiency E55.9
[2023-07-03] MEDS: PRAVASTATIN SOD 20 MG TAB PO SCH (20:07)
[2023-07-03] MEDS: OLANZAPINE 2.5 MG TAB PO SCH (20:07)
[2023-07-04] MEDS: LEVOTHYROXINE SODIUM 100 MCG TABLET PO SCH (06:17)
[2023-07-04] MEDS: CHLORTHALIDONE 25 MG TAB PO SCH (08:31)
[2023-07-04] MEDS: CHOLECALCIFEROL 1,000 UNITS 25 MCG TAB PO SCH (08:31)
[2023-07-04] MEDS: POLYETHYLENE (MIRALAX) 17 GM PACK PO SCH (08:31)
[2023-07-04] MEDS: DOCUSATE SODIUM/SENNA 50/8.6MG TAB PO SCH (08:31)
[2023-07-04] MEDS: HEPARIN SOD 5,000 UNIT/0.5 ML VIAL SQ SCH ×2 (08:31→20:00)
[2023-07-04] MEDS: THIAMINE HCL 100 MG TAB PO SCH (08:31)
[2023-07-04] MEDS: FOLIC ACID 1 MG TAB PO SCH (08:31)
[2023-07-04 10:41] LABS: BUN Creatinine Ratio 36.8 (10-20); Calcium 9.8 mg/dl (8.6-10.3); Creatinine Clr Calc Pharmacy 44.4 ml/min; Est GFR (African American) 89.9 ml/min; Est GFR (Non-African American) 77.6 ml/min; Potassium 3.6 mmol/L (3.5-5.1)
--- NOTE | 2023-07-04 14:17 | Hospitalist Progress Note ---
Date of Service July 04, 2023 Assessment & Plan (1) Fall: Plan: unwitnessed but son reports she was so weak her legs gave out and then couldn't get off the lfoor possibly due to infection vs LE edema Improving PT OT recommending rehab-awaiting placement (2) Encephalopathy acute: Plan: Now much improved with zyprexa and getting more sleep, moving bowels cause possibly combination of constipation, acute illness, hospital delirium No PNA on CXR, UA not suggestive of infection HIDA and RUQ US r/u acute cholecystitis Did have leukocytosis on arrival but now resolved however was on ZOsyn which is now stopped checked COVID/Flu/RSV-neg continue to work on bowel regimen, good sleep wake cycles continue low dose Zyprexa qhs Lyme negative, B12 normal, B1 drawn and pending-started empiric thiamine 200mg po daily Folate low normal-replace with po floic acid TSH normal (3) Leg swelling: Plan: L>>R and acute on chronic as per son checked LLE venous Doppler-neg for DVT but shows large Anne's cyst BNP mildly elevated, ECHO normal with 1+ protein on UA< low TProt and albumin Hospice Community Liaison consulted, needs protein shakes Improved now with adding JORDI hose started chlorthalidone 12.5mg po daily for HTN and will help swelling (4) Anemia: Plan: normocytic, hgb 10 checked B12, folate, Fe studies--> show borderline folate deficiency, anemia of chronic disease TSH normal -added folic acid 1mg po daily (5) Elevated troponin: Plan: mild and repeat normal demand ischemia (6) Abnormal CT scan, gallbladder: Plan: -TBili slightly elevated on admission with patient report of emesis at home. TBili normalized -CT with evidence of poss cholecystitis, RUQ US with CBD dilation, HIDA normal -Leukocytosis resolved, has been receiving IVF and Zosyn-have both since been dcd (7) Dehydration: Plan: -Progressive decline in nutritional status, dehydrated on admission -received IVFs and resolved -nutrition consult (8) Ambulatory dysfunction: Plan: -Progressive, acute on chronic yesterday -PT and OT evaluations while admitted, will need SNF (9) Dementia: Plan: -History of, CT Head without any acute intracranial abnormalities -PT and OT, possible placement as above -Patient herself is very forgetful, does not remember sliding out of bed, forgot why she was NPO until I reminded her later in the conversation, answers "I don't know" or "I don't remember" to questions about her meals at home, what medications she is on, etc. -Concerned about her home safety with her current functional status, she lives alone and has had decline over the last month. She has children and her son lives 2 miles away and visits and helps often in her care -check B1 level-pending and started empiric thiamine (10) HTN (hypertension): Plan: BPs becoming more elevated and now much improved on chkorthalidone not on meds at home started chlorthalidone 12.5mg po daily monitor (11) Hypothyroidism: Plan: TSH here normal continue home LT4 dose (12) Osteoporosis: (13) Vitamin D deficiency: Plan FULL CODE Heparin for DVT ppx Medical floor continued stay, awaiting rehab MEDICALLY STABLE FOR DISCHARGE Admission and Anticipated Discharge Date Admission Date: June 29, 2023 Subjective Pt has no complaints Physical Exam Constitutional: WD/WN, vitals as above Respiratory: normal respiratory effort, lungs clear to auscultation Cardiovascular: Rate/Rhythm: regular rate and regular rhythm Heart Sounds: no murmur Extremities: + edema (1+ pitting edema LLE,trace+ RLE, much improved) Gastrointestinal (Abdomen): normal bowel sounds, soft, nontender, no hepatosplenomegaly Psychiatric: Orientation: alert, oriented to person, oriented to place and cooperative Speech: normal rate/rhythm/volume of speech; no pressured speech Results & Data Results & Data Vital Signs (Past 12 Hours) Vital Signs Temp Pulse Resp BP Pulse Ox O2 Del Method 07/04/23 06:21 36.9 C 80 18 145/83 H 95 Room Air Laboratory Results BP reviewed PG Care Time/CCT Total # of Minutes Spent Total Time Spent with Patient: Total time spent is greater than 50% in coordination of care (as documented) at patient's floor/unit and/or counseling patient: Coding Level of Care Code 42473 SUB INP/OBS CARE 25MIN Diagnoses Fall W19.XXXA Encephalopathy acute G93.40 Leg swelling M79.89 Anemia D64.9 Elevated troponin R77.[address] scan, gallbladder R93.2 Dehydration E86.0 Ambulatory dysfunction R26.2 Dementia F03.90 HTN (hypertension) I10 Hypothyroidism E03.9 Osteoporosis M81.0 Vitamin D deficiency E55.9
[2023-07-04] MEDS: PRAVASTATIN SOD 20 MG TAB PO SCH (20:00)
[2023-07-04] MEDS: OLANZAPINE 2.5 MG TAB PO SCH (20:00)
[2023-07-05] MEDS: LEVOTHYROXINE SODIUM 100 MCG TABLET PO SCH (06:18)
[2023-07-05 06:48] LABS: Appearance Urine Clear (Clear); Bilirubin Urine Negative (Negative); Blood Urine Negative (Negative); Color Urine Yellow; Glucose Urine UA Negative (Negative); Ketones Urine Negative (Negative); Leukocyte Esterase Urine Negative (Negative); Nitrite Urine Negative (Negative); Protein Urine Negative (Negative); Urobilinogen Urine Negative (Negative); pH Urine 6.5 (4.5-7.5)
[2023-07-05] MEDS: THIAMINE HCL 100 MG TAB PO SCH (08:27)
[2023-07-05] MEDS: CHOLECALCIFEROL 1,000 UNITS 25 MCG TAB PO SCH (08:27)
[2023-07-05] MEDS: FOLIC ACID 1 MG TAB PO SCH (08:27)
[2023-07-05] MEDS: CHLORTHALIDONE 25 MG TAB PO SCH (08:27)
[2023-07-05] MEDS: DOCUSATE SODIUM/SENNA 50/8.6MG TAB PO SCH (08:28)
[2023-07-05] MEDS: POLYETHYLENE (MIRALAX) 17 GM PACK PO SCH (08:29)
[2023-07-05] MEDS: HEPARIN SOD 5,000 UNIT/0.5 ML VIAL SQ SCH ×2 (08:29→20:33)
--- NOTE | 2023-07-05 15:43 | Hospitalist Progress Note ---
Date of Service July 05, 2023 Assessment & Plan (1) Fall: Plan: unwitnessed but son reports she was so weak her legs gave out and then couldn't get off the floor possibly due to infection vs LE edema Improving PT OT recommending rehab-awaiting placement (2) Encephalopathy acute: Plan: Now much improved with zyprexa and getting more sleep, moving bowels cause possibly combination of constipation, acute illness, hospital delirium No PNA on CXR, UA not suggestive of infection HIDA and RUQ US r/u acute cholecystitis Did have leukocytosis on arrival but now resolved however was on ZOsyn which is now stopped checked COVID/Flu/RSV-neg continue to work on bowel regimen, good sleep wake cycles continue low dose Zyprexa qhs but increase to 5mg Lyme negative, B12 normal, B1 drawn and pending-started empiric thiamine 200mg po daily Folate low normal-replace with po folic acid TSH normal (3) Leg swelling: Plan: L>>R and acute on chronic as per son checked LLE venous Doppler-neg for DVT but shows large Anne's cyst BNP mildly elevated, ECHO normal with 1+ protein on UA< low TProt and albumin Genetic Physician consulted, needs protein shakes Improved now with adding JORDI hose and starting chlorthalidone for HTN -continue chlorthalidone 12.5mg po daily for HTN (4) Anemia: Plan: normocytic, hgb 10 checked B12, folate, Fe studies--> show borderline folate deficiency, anemia of chronic disease TSH normal -added folic acid 1mg po daily (5) Elevated troponin: Plan: mild and repeat normal demand ischemia (6) Abnormal CT scan, gallbladder: Plan: -TBili slightly elevated on admission with patient report of emesis at home. TBili normalized -CT with evidence of poss cholecystitis, RUQ US with CBD dilation, HIDA normal -Leukocytosis resolved, has been receiving IVF and Zosyn-have both since been dcd (7) Dehydration: Plan: -Progressive decline in nutritional status, dehydrated on admission -received IVFs and resolved -nutrition consult (8) Ambulatory dysfunction: Plan: -Progressive, acute on chronic yesterday -PT and OT evaluations while admitted, will need SNF (9) Dementia: Plan: -History of, CT Head without any acute intracranial abnormalities -PT and OT, possible placement as above -Patient herself is very forgetful, does not remember sliding out of bed, forgot why she was NPO until I reminded her later in the conversation, answers "I don't know" or "I don't remember" to questions about her meals at home, what medications she is on, etc. -Concerned about her home safety with her current functional status, she lives alone and has had decline over the last month. She has children and her son lives 2 miles away and visits and helps often in her care -check B1 level-pending and started empiric thiamine (10) HTN (hypertension): Plan: BPs becoming more elevated and now much improved on chlorthalidone not on meds at home started chlorthalidone 12.5mg po daily monitor (11) Hypothyroidism: Plan: TSH here normal continue home LT4 dose (12) Osteoporosis: (13) Vitamin D deficiency: Plan FULL CODE Heparin for DVT ppx Medical floor continued stay, awaiting rehab-insurance auth pending at [facility] MEDICALLY STABLE FOR DISCHARGE Discussed her care with son on phone on 07/05 Admission and Anticipated Discharge Date Admission Date: June 29, 2023 Subjective Pt was up all night and now is sleeping a lot today. No other concerns as per nursing Physical Exam Constitutional: WD/WN, vitals as above Respiratory: normal respiratory effort, lungs clear to auscultation Cardiovascular: Rate/Rhythm: regular rate and regular rhythm Heart Sounds: no murmur Extremities: + edema (now only trace pitting edema L>R much improved) Gastrointestinal (Abdomen): normal bowel sounds, soft, nontender, no hepatosplenomegaly Psychiatric: Orientation: alert, oriented to person, oriented to place and cooperative Speech: normal rate/rhythm/volume of speech; no pressured speech Results & Data Results & Data Vital Signs (Past 12 Hours) Vital Signs Temp Pulse Resp BP Pulse Ox O2 Del Method 07/05/23 14:27 36.5 C 83 18 107/72 94 Room Air 07/05/23 07:12 36.7 C 82 16 109/70 93 Room Air Laboratory Results UA negative BCxs remain NGTD PG Care Time/CCT Total # of Minutes Spent Total Time Spent with Patient: Total time spent is greater than 50% in coordination of care (as documented) at patient's floor/unit and/or counseling patient: Coding Level of Care Code 26873 SUB INP/OBS CARE 1/25MIN Diagnoses Fall W19.XXXA Encephalopathy acute G93.40 Leg swelling M79.89 Anemia D64.9 Elevated troponin R77.[address] scan, gallbladder R93.2 Dehydration E86.0 Ambulatory dysfunction R26.2 Dementia F03.90 HTN (hypertension) I10 Hypothyroidism E03.9 Osteoporosis M81.0 Vitamin D deficiency E55.9
[2023-07-05] MEDS: PRAVASTATIN SOD 20 MG TAB PO SCH (20:31)
[2023-07-05] MEDS: OLANZapine 5 MG TABLET PO SCH (20:31)
[2023-07-06] MEDS: LEVOTHYROXINE SODIUM 100 MCG TABLET PO SCH (05:20)
[2023-07-06] MEDS: THIAMINE HCL 100 MG TAB PO SCH (09:01)
[2023-07-06] MEDS: HEPARIN SOD 5,000 UNIT/0.5 ML VIAL SQ SCH ×2 (09:01→20:03)
[2023-07-06] MEDS: FOLIC ACID 1 MG TAB PO SCH (09:01)
[2023-07-06] MEDS: CHOLECALCIFEROL 1,000 UNITS 25 MCG TAB PO SCH (09:01)
[2023-07-06] MEDS: POLYETHYLENE (MIRALAX) 17 GM PACK PO SCH (09:02)
[2023-07-06] MEDS: DOCUSATE SODIUM/SENNA 50/8.6MG TAB PO SCH (09:02)
[2023-07-06] MEDS ORDERED: ACETAMINOPHEN 325 MG TAB PO PRN (10:13)
[2023-07-06] MEDS: METOPROLOL TARTRATE 25 MG TAB PO SCH ×2 (12:28→20:03)
--- NOTE | 2023-07-06 16:07 | Hospitalist Progress Note ---
Date of Service July 06, 2023 Assessment & Plan (1) Fall: Plan: unwitnessed but son reports she was so weak her legs gave out and then couldn't get off the floor. Continue supportive care. Continue OT and PT therapies. SNF placement at discharge. (2) Encephalopathy acute: Plan: Acute metabolic encephalopathy present on admission. Now resolved. (3) Leg swelling: Plan: L>>R and chronic . Checked LLE venous Doppler-neg for DVT but shows large Anne's cyst. ECHO normal. Improved now with adding JORDI hose. (4) Anemia: Plan: normocytic, hgb 10. Borderline folate deficiency. Continue folate supplementation. Anemia of chronic disease. TSH normal (5) Elevated troponin: Plan: Suspect demand ischemia. No evidence of acute coronary syndrome. No acute EKG changes. No chest pain (6) Abnormal CT scan, gallbladder: Plan: HIDA scan normal. Zosyn has been discontinued. No evidence of acute cholecystitis (7) Dehydration: Plan: Corrected with IV fluid rehydration. Monitor intake and output. Avoid diuretics -nutrition consult (8) Ambulatory dysfunction: Plan: Continue OT and PT. Will need SNF placement at discharge (9) Dementia: Plan: Supportive care. Started empiric thiamine (10) HTN (hypertension): Plan: Now on metoprolol therapy. (11) Hypothyroidism: Plan: TSH normal. Stable. Continue thyroid replacement therapy Plan SNF placement at discharge. IPR placement has been denied by insurance Admission and Anticipated Discharge Date Admission Date: June 29, 2023 Subjective Alert and stable. No distress. Chlorthalidone discontinued due to advanced age and hypovolemia present on admission. She has been started on metoprolol for blood pressure and heart rate control. Peer to peer review was completed and IPR has been denied. SNF will be approved however. Case management notified. Review of Systems Review of Systems: Constitutional-no fever or chills ENT-no blurred vision, no double vision, no epistaxis, no sore throat Respiratory-no cough, no wheezing, no shortness of breath Cardiac-no palpitations, no chest pain, no syncope GI-no nausea, vomiting, diarrhea, melena, hematochezia -no urinary retention, no urinary incontinence, no dysuria, no hematuria Musculoskeletal-no joint pain, no muscle tenderness Skin-no bruising, no rashes, no pruritus Neuro-no isolated weakness, no paresthesia, no weakness Psych-no depression, no anxiety Physical Exam Physical Exam: General-alert and oriented x3, no fevers, no chills HEENT-head atraumatic and normocephalic, pupils equal and reactive to light, extraocular muscles intact Neck-no lymphadenopathy or thyromegaly, trachea midline Chest-clear to auscultation percussion. No rales wheezing or rhonchi Cardiac-regular rate and rhythm, normal S1 and S2 Abdomen-normal bowel sounds, nontender, no hepatosplenomegaly Extremities-no cyanosis, clubbing, or edema Neuro-cranial nerves II through XII intact, motor and sensory function within normal limits, strength symmetrical with generalized weakness , no focal defici ts Psych-normal affect, normal mood Results & Data Results & Data Vital Signs (Past 12 Hours) Vital Signs Temp Pulse Resp BP Pulse Ox O2 Del Method 07/06/23 15:22 36.7 C 67 18 120/76 96 Room Air 07/06/23 07:42 37.0 C 86 18 109/70 92 Room Air Laboratory Results 07/01/23 06:05 07/04/23 09:52 PG Care Time/CCT Total # of Minutes Spent Total Time Spent with Patient: Total time spent is greater than 50% in coordination of care (as documented) at patient's floor/unit and/or counseling patient: Coding Level of Care Code 77142 SUB INP/OBS CARE 3/50MIN Diagnoses Fall W19.XXXA Encephalopathy acute G93.40 Leg swelling M79.89 Anemia D64.9 Elevated troponin R77.[address] scan, gallbladder R93.2 Dehydration E86.0 Ambulatory dysfunction R26.2 Dementia F03.90 HTN (hypertension) I10 Hypothyroidism E03.9
[2023-07-06] MEDS: PRAVASTATIN SOD 20 MG TAB PO SCH (20:03)
[2023-07-06] MEDS: OLANZapine 5 MG TABLET PO SCH (20:03)
[2023-07-07] MEDS: LEVOTHYROXINE SODIUM 100 MCG TABLET PO SCH (05:49)
[2023-07-07] MEDS: METOPROLOL TARTRATE 25 MG TAB PO SCH (08:03)
[2023-07-07] MEDS: FOLIC ACID 1 MG TAB PO SCH (08:03)
[2023-07-07] MEDS: CHOLECALCIFEROL 1,000 UNITS 25 MCG TAB PO SCH (08:03)
[2023-07-07] MEDS: HEPARIN SOD 5,000 UNIT/0.5 ML VIAL SQ SCH (08:04)
[2023-07-07] MEDS: DOCUSATE SODIUM/SENNA 50/8.6MG TAB PO SCH (08:04)
[2023-07-07] MEDS: POLYETHYLENE (MIRALAX) 17 GM PACK PO SCH (08:05)
[2023-07-07] MEDS: THIAMINE HCL 100 MG TAB PO SCH (08:05)
--- NOTE | 2023-07-07 13:01 | Discharge Summary ---
Date of Service July 07, 2023 Admission HPI Per Admitting Provider The patient is a 88-year-old female with a past medical history including hypercalcemia, dementia, vitamin D deficiency, aortic valve insufficiency, osteoporosis, hypertension, dyslipidemia, hypothyroidism and left hip pain. She has had gradual decline over the past few months, which was more abrupt today when he found her on the floor and unable to get up. Principal Diagnosis Mechanical fall, acute metabolic encephalopathy, hypovolemia Discharge Exam General-alert and oriented x3, no fevers, no chills HEENT-head atraumatic and normocephalic, pupils equal and reactive to light, extraocular muscles intact Neck-no lymphadenopathy or thyromegaly, trachea midline Chest-clear to auscultation percussion. No rales wheezing or rhonchi Cardiac-regular rate and rhythm, normal S1 and S2 Abdomen-normal bowel sounds, nontender, no hepatosplenomegaly Extremities-no cyanosis, clubbing, or edema Neuro-cranial nerves II through XII intact, motor and sensory function within normal limits, strength symmetrical with generalized weakness , no focal deficits Psych-normal affect, normal mood Discharge Data Allergies Allergy/AdvReac Type Severity Reaction Status Date / Time morphine AdvReac Intermediate nausea Verified 06/29/23 16:28 vomiting Consultations 06/29/23 17:06 ED Decision to Admit Stat Ordered Studies 06/29/23 16:24 CT Abd and Pelvis [CT abd pelvis IV con only] Stat CT head/brain wo con Stat 06/29/23 18:33 US gallbladder Stat 07/01/23 17:15 US venous doppler LE LT Urgent Hospital Course (1) Fall: unwitnessed but son reports she was so weak her legs gave out and then couldn't get off the floor. Continue supportive care. Continue OT and PT therapies. SNF placement at discharge. (2) Encephalopathy acute: Acute metabolic encephalopathy present on admission. Now resolved. (3) Leg swelling: L>>R and chronic . Checked LLE venous Doppler-neg for DVT but shows large Anne's cyst. ECHO normal. Improved now with adding JORDI hose. (4) Anemia: normocytic, hgb 10. Borderline folate deficiency. Continue folate supplementation. Anemia of chronic disease. TSH normal (5) Elevated troponin: Suspect demand ischemia. No evidence of acute coronary syndrome. No acute EKG changes. No chest pain (6) Abnormal CT scan, gallbladder: HIDA scan normal. Zosyn has been discontinued. No evidence of acute cholecystitis (7) Dehydration: Corrected with IV fluid rehydration. Monitor intake and output. Avoid diuretics (8) Ambulatory dysfunction: Continue OT and PT. Will need SNF placement at discharge (9) Dementia: Supportive care. Started empiric thiamine (10) HTN (hypertension): Now on metoprolol therapy. (11) Hypothyroidism: TSH normal. Stable. Continue thyroid replacement therapy Plan Discharge to Center care today, July 07 Total Time Total Time Spent Total Time Spent (In Minutes): 40-minute Discharge Plan Discharge Items Patient Disposition: Transfer [facility] Fac Reason For Visit: DEHYDRATION, PROGRESSIVE WEAKNESS Discharge Diagnosis: Mechanical fall, metabolic encephalopathy, volume depletion Condition on Discharge: Good Activity: Resume your previous activity Non-emergency contact: Primary Care Provider Call non-emergency contact if: you have any medication questions Follow-up/Referrals: Roscoe Mendiola MD [Primary Care Provider] - Diet: Regular Addtl Attending Provider Instructions: Zyprexa and metoprolol are new medications Pending Studies at Discharge: No Stand-Alone Forms: My [facility] [place] [employer] Electronic Healthcare Skilled Items Patient informed of condition?: Yes DNR: Yes Discharge Level of Care: Skilled Communicable Disease: No Discharge Prognosis: Stable Lines: None Urinary Catheter: No Medications and DC Order Prescriptions: New metoprolol tartrate 25 mg Tablet 25 mg PO BID Qty: 0 0RF sennosides-docusate sodium [Senokot-S] 8.6-50 mg Tablet 1 tab PO QAM Qty: 0 0RF polyethylene glycol 3350 [Miralax] 17 gram Powder In Packet 17 g PO DAILY Qty: 0 0RF folic acid 1 mg Tablet 1 mg PO QAM Qty: 0 0RF thiamine HCl (vitamin B1) 100 mg Tablet 200 mg PO QAM Qty: 0 0RF olanzapine 5 mg Tablet 5 mg PO HS Qty: 0 0RF Continued pravastatin 20 mg tablet 20 mg PO HS Qty: 90 3RF cholecalciferol (vitamin D3) 50 mcg (2,000 unit) capsule 50 mcg PO DAILY glucosamine-chondroitin 900 mg tablet 900 mg PO DAILY calcium carbonate-vitamin D3 [Calcium 600 + D(3)] 600 mg-10 mcg (400 unit) Tablet 1 tab PO DAILY levothyroxine [Synthroid] 100 mcg tablet 100 mcg PO DAILYBB Discharge Orders: Discharge Order (Routine); Ordered 07/07/23 Ordered By: Nathanael Teran Admission Data Admit Date/Time: 06/29/23 18:31 Attending Provider: Nathanael Teran Admit Provider: Kiran Granger Primary Care Provider: Roscoe Mendiola Other Providers: Kiran Granger ; [facility] ; [place] ; [facility] Coding Level of Care Code 50668 INP/OBS DISCH >30 MIN Diagnoses Fall W19.XXXA Encephalopathy acute G93.40 Leg swelling M79.89 Anemia D64.9 Elevated troponin R77.[address] scan, gallbladder R93.2 Dehydration E86.0 Ambulatory dysfunction R26.2 Dementia F03.90 HTN (hypertension) I10 Hypothyroidism E03.9
== END 2023-07-07 13:51 | DRG 640 ==
LOC: ED 13:06 → 3N 18:31 → SUATTDRO 18:31 → 3N 19:46